=== PATIENT | female | born 1935 | race Caucasian/White ===

== ENCOUNTER 2018-01-08 07:59 | Day surgery (SDC) | payer MEDICARE, BC ==
[~2018-01-08 07:59] MED LIST: Buffered Lidocaine 0.9% SYRIN* 5 ML/SYR SYRINGE INTRADERM ONE
[2018-01-08] MEDS ORDERED: Ketorolac 0.5% OPHTH (NF) 0.5 % 5 ML BTL ONE (08:09)
[2018-01-08] MEDS ORDERED: Cyclopentolate 1% OPTH.SOL* 2 ML BTL ONE (08:09)
[2018-01-08] MEDS ORDERED: Phenylephrine 2.5% OPTH.SOL* 2 ML BTL ONE (08:09)
[2018-01-08] MEDS ORDERED: Lidocaine 2% EPI 1:200000 MPF* 20 ML VIAL ONE (08:09)
[2018-01-08] MEDS ORDERED: Proparacaine 0.5% OPHTH.SOL* 15 ML BTL ONE (08:09)
[2018-01-08] MEDS ORDERED: Povidone Iodine 5% OPTH* 30 ML BTL ONE (08:09)
[2018-01-08] MEDS ORDERED: Neomycin/Polymy/Dex OPTH.SUSP* MAXITROL 0.1% 5 ML ONE (08:09)
[2018-01-08] MEDS ORDERED: Lidocaine 1% MPF* 2 ML VIAL ONE (08:09)
[2018-01-08] MEDS ORDERED: acetaZOLAMIDE TAB* 250 MG ONE (08:09)
[2018-01-08] MEDS ORDERED: Midazolam* 1 MG/ML 2 ML VIAL (2 MG) ONE (09:16)
[2018-01-08] MEDS ORDERED: Labetalol IV* 5 MG/ML 20 ML VIAL ONE (09:38)
[2018-01-08] MEDS ORDERED: Metoprolol Tartrate IV* 1 MG/ML 5 ML VIAL ONE (09:38)
[2018-01-08 09:49] VITALS: BP 168/74
--- NOTE | 2018-01-08 22:19 | OP ---
DATE OF OPERATION: 01/08/18 - [facility] DATE OF : 31 SURGEON: Geovani Douglas M.D. PREOPERATIVE DIAGNOSIS: Cataract, left eye. POSTOPERATIVE DIAGNOSIS: Cataract, left eye. OPERATIVE PROCEDURE: Extracapsular cataract extraction with intraocular lens implant, left eye. DESCRIPTION OF PROCEDURE: The patient was brought to the operating room after being given 1/2% Alcaine with epinephrine drops in the preoperative area. The eye was prepped and draped in the usual sterile fashion. Sterile drape and eyelid speculum were placed. Again, topical 1/2% Alcaine with epinephrine was given. A paracentesis incision was made at the 3 o'clock position with the No.75 blade. Clear cornea incision 2.2 x 2.2-mm was created at the 6 o'clock position starting at the anterior limbus using the 2.2-mm keratome. The anterior chamber was irrigated with 0.4 mL of 1% non-preservative intracameral lidocaine and filled with DisCoVisc. A capsulorrhexis was completed using the cystotome and the Utrata forceps. Hydrodissection was performed with balanced salt solution. The lens nucleus was removed with the Phacoemulsification handpiece without incident. Cortex was removed with the irrigation-aspiration handpiece. The capsular bag was re-inflated using DisCoVisc and an [id number] implant was inserted with the shooter and oriented to the 177 degree meridian. Horizontal reference roman were made with the patient in seated position in the preoperative area. A Malyugin ring was placed prior to capsulorrhexis because of a 3 mm pupil and removed after insertion and positioning of the lens. Indication for the complex cataract surgery: Pupil abnormalities requiring pupil dilation device. The irrigation-aspiration handpiece was used to remove all residual DisCoVisc. The eye was refilled with balanced salt solution and the wound checked and found to be watertight. Topical Maxitrol drops were given. [id number]/[facility] #: [id number] MTDD
== END 2018-01-08 10:05 | disposition home or self-care (01) ==
LOC: OREAST 07:59
PROVIDERS: ATTEND Specialist
DX: H25.12 Age-related nuclear cataract, left eye (principal); H26.491 Other secondary cataract, right eye; I10 Essential (primary) hypertension; M81.0 Age-related osteoporosis without current pathological fracture; H10.45 Other chronic allergic conjunctivitis; H43.819 Vitreous degeneration, unspecified eye; Z85.828 Personal history of other malignant neoplasm of skin; I34.1 Nonrheumatic mitral (valve) prolapse; I48.91 Unspecified atrial fibrillation
CPT/HCPCS: A9270-GY; J2250; J3490; V2787

== ENCOUNTER 2018-03-05 20:05 | Emergency (ER) | payer MEDICARE, BC ==
[2018-03-05] MEDS ORDERED: traMADol TAB* 50 MG PO ONE (22:28)
--- NOTE | 2018-03-05 22:38 | UC ---
Eugenia Arellano Emily, scribed for Devon Doan MD on 03/05/18 at 2145 . Back Pain HPI - HPI Summary HPI Summary: This patient is an 82 year old F presenting to urgent care with a chief complaint of lower back pain that began status post fall that occurred today at 1130. Pt believes that she twisted her back when falling. The patient rates the pain 5/10 in severity. Symptoms aggravated by position. Symptoms alleviated by bending. Patient denies bowel symptoms, urinary symptoms, weakness, and numbness. Medications reviewed. Allergies reviewed. - History of Current Complaint Chief Complaint: UCBackPain Stated Complaint: BACK INJURY Time Seen by Provider: 03/05/18 21:38 Hx Obtained From: Patient ?: No Onset/Duration: Sudden Onset, Lasting Hours, Still Present Timing: Constant Severity Initially: Moderate Severity Currently: Moderate Pain Intensity: 5 Pain Scale Used: 0-10 Numeric Aggravating Factor(s): Other - Position Alleviating Factor(s): Other - Bending - Allergies/Home Medications Allergies/Adverse Reactions: Allergies Allergy/AdvReac Type Severity Reaction Status Date / Time latex Allergy Rash Verified 03/05/18 20:42 Home Medications: Home Medications Olmesartan/Hydrochlorothiazide [Olmesartan Medoxomil/Hydr 40-12.5 mg] 0.5 tab PO 03/05/18 [History] PMH/Surg Hx/FS Hx/Imm Hx Previously Healthy: No Endocrine History: Thyroid Disease Cardiovascular History: Hypertension - Surgical History Surgical History: Yes Surgery Procedure, Year, and Place: (20-30 YEARS AGO) DILATION AND CURETTAGE, [facility] [place]. 1995 LEFT HEEL SPUR EXCISION, [facility] [place]. 2005 EXPLORATORY BLADDER SURGERY, [facility] [place]. SEVERAL BASAL CELL CARCINOMA REMOVAL. RIGHT EYE CATARACT EXTRACTION 2014 - Family History Known Family History: Negative: Cardiac Disease, Diabetes - Social History Occupation: Retired Lives: Alone Alcohol Use: Weekly Alcohol Amount: OCCASIONAL VODKA SOUR Substance Use Type: None Smoking Status (MU): Never Smoked Tobacco Review of Systems Gastrointestinal: Negative Genitourinary: Negative Musculoskeletal: Other: - Postiive back pain Neurological: Other - Negative weakness and numbness All Other Systems Reviewed And Are Negative: Yes Physical Exam - Summary Physical Exam Summary: General: well-appearing, no pain distress Skin: warm, color reflects adequate perfusion, dry. Two skin tears on L arm that are covered and dressed. Head: normal Eyes: EOMI, MATTHEW ENT: normal Neck: supple, nontender Respiratory: CTA, breath sounds present Cardiovascular: RRR Abdomen: soft, nontender Bowel: present Musculoskeletal: normal, strength/ROM intact. Good reflexes. Good sensation. FROM. Back is not tender to palpation. Neurological: sensory/motor intact, A&O x3 Psychological: affect/mood appropriate Triage Information Reviewed: Yes Vital Signs: Initial Vital Signs Temp 97.6 F 03/05/18 20:34 Pulse 72 03/05/18 20:34 Resp 18 03/05/18 20:34 BP 220/103 03/05/18 20:34 Pulse Ox 99 03/05/18 20:34 Vital Signs Reviewed: Yes Diagnostics - Radiology Lumbar Spine XR Radiology Interpretation Completed By: Radiologist - Lumbar spine XR reveals, per physician, scoliosis, osteoporosis, and no acute fracture. Back Pain Course/Dx - Course Course Of Treatment: NO NEUROLOGIC DEFICIT ON EXAM - Differential Dx/Diagnosis Provider Diagnoses: LOW BACK PAIN. SKIN TEARS LEFT ARM Discharge - Sign-Out/Discharge Documenting (check all that apply): Discharge/Admit/Transfer - Discharge Plan Condition: Stable Disposition: HOME Prescriptions: traMADol TAB* [Ultram*] 50 mg PO Q6HR PRN #20 tab MDD 4 PRN Reason: Pain Patient Education Materials: Acute Low Back Pain (ED), Skin Tear (ED) Referrals: Kandace Osborne MD [Primary Care Provider] - Additional Instructions: FOLLOW UP WITH YOUR DOCTOR. GET RECHECKED FOR ANY WORSENING OF YOUR CONDITION; PAIN, WEAKNESS, NUMBNESS, DIFFICULTY CONTROLLING BOWEL OR BLADDER OR QUESTIONS OR CONCERNS. - Billing Disposition and Condition Condition: STABLE Disposition: HOME The documentation as recorded by the Eugenia glass Emily accurately reflects the service I personally performed and the decisions made by me, Devon Doan MD.
[2018-03-05 22:50] VITALS: BP 176/88
--- NOTE | 2018-03-06 07:10 | RAD ---
INDICATION: Low back pain status post fall. COMPARISON: There are no prior studies available for comparison. TECHNIQUE: 5 views of the lumbar spine were obtained including lateral, oblique, AP and a coned-down lateral view of the lumbar sacral junction. FINDINGS: There is a moderate lumbar scoliosis convex toward the left side. No fracture is seen. There is mild to moderate diffuse degenerative disc disease with changes most prominent at the L2-L3 and L3-L4 levels. There is a large calcification which projects over the pelvis in the midline possibly representing a calcified fibroid. IMPRESSION: 1. NO EVIDENCE FOR FRACTURE. 2. SCOLIOSIS AND MILD TO MODERATE DEGENERATIVE DISC DISEASE.
== END 2018-03-05 22:47 | disposition home or self-care (01) ==
LOC: UCEAST 20:05
DX: M54.5 Low back pain (principal); S40.922A Unspecified superficial injury of left upper arm, initial encounter; X50.0XXA Overexertion from strenuous movement or load, initial encounter; W19.XXXA Unspecified fall, initial encounter; Y93.9 Activity, unspecified; Y92.9 Unspecified place or not applicable; I10 Essential (primary) hypertension
CPT/HCPCS: 72110; 99212; A9270-GY; G0463

== ENCOUNTER 2018-03-12 15:02 | Emergency (ER) | payer MEDICARE, BC ==
[2018-03-12 15:56] VITALS: BP 172/84
--- NOTE | 2018-03-12 17:32 | UC ---
Back Pain HPI - HPI Summary HPI Summary: PATIENT WAS SEEN HERE ONE WEEK AGO AFTER A FALL COMPLAINING OF LOW BACK PAIN. HAD NEGATIVE LUMBAR X-RAYS AND WAS TREATED WITH TRAMADOL. PATIENT RETURNS STATING THE PAIN IS GETTING PROGRESSIVELY WORSE AND THE TRAMADOL IS NOT WORKING. SHE DENIES ANY LOSS OF BOWEL OR BLADDER CONTROL. NO SADDLE ANESTHESIA. - History of Current Complaint Chief Complaint: UCBackPain Stated Complaint: BACK PAIN Time Seen by Provider: 03/12/18 16:59 Hx Obtained From: Patient Onset/Duration: Sudden Onset, Lasting Days, Still Present Timing: Constant Severity Initially: Moderate Severity Currently: Moderate Pain Intensity: 5 Pain Scale Used: 0-10 Numeric Back Pain: Is Discrete @ - RIGHT LOW BACK Character: Sharp Aggravating Factor(s): Movement Alleviating Factor(s): Rest Associated Signs And Symptoms: Positive: Negative - Allergies/Home Medications Allergies/Adverse Reactions: Allergies Allergy/AdvReac Type Severity Reaction Status Date / Time latex Allergy Rash Verified 03/12/18 15:32 Home Medications: Home Medications Acetaminophen [Acetaminophen Extra Strength] 500 mg PO ONCE 03/12/18 [History Confirmed 03/12/18] PMH/Surg Hx/FS Hx/Imm Hx - Additional Past Medical History Additional PMH: ARTHRITIS Cardiovascular History: Hypertension, Atrial Fibrillation Other Cancer History: SKIN CANCER - Surgical History Surgical History: Yes Surgery Procedure, Year, and Place: (20-30 YEARS AGO) DILATION AND CURETTAGE, [facility] [place]. 1995 LEFT HEEL SPUR EXCISION, [facility] [place]. 2005 EXPLORATORY BLADDER SURGERY, [facility] [place]. SEVERAL BASAL CELL CARCINOMA REMOVAL. RIGHT EYE CATARACT EXTRACTION 2013 - Family History Known Family History: Negative: Cardiac Disease, Diabetes - Social History Alcohol Use: None Alcohol Amount: OCCASIONAL VODKA SOUR Substance Use Type: None Smoking Status (MU): Never Smoked Tobacco Review of Systems Constitutional: Negative Skin: Negative Respiratory: Negative Cardiovascular: Negative Gastrointestinal: Negative Genitourinary: Negative Musculoskeletal: Decreased ROM, Myalgia All Other Systems Reviewed And Are Negative: Yes Physical Exam Triage Information Reviewed: Yes Appearance: Well-Appearing, No Pain Distress, Well-Nourished Vital Signs: Initial Vital Signs Temp 97.5 F 03/12/18 15:36 Pulse 68 03/12/18 15:36 Resp 16 03/12/18 15:36 BP 0/0 03/12/18 15:36 Pulse Ox 100 06/06/18 15:36 Vital Signs Reviewed: Yes Eyes: Positive: Conjunctiva Clear ENT: Positive: Hearing grossly normal Neck: Positive: Supple Respiratory: Positive: No respiratory distress, No accessory muscle use Cardiovascular: Positive: Pulses Normal Abdomen Description: Positive: Soft Musculoskeletal: Positive: No Edema, Other: - TTP RIGHT MID/LOW BACK PARASPINOUS MUSCLES Neurological: Positive: Alert Psychological: Positive: Age Appropriate Behavior Skin: Negative: rashes Diagnostics - Radiology CT LUMBAR SPINE Xray Interpretation: Positive (See Comments) - MODERATE DEGREE OF COMPRESSION OF APPROXIMATELY 25-50% OF THE T12 VERTEBRA SUPERIOR ENDPLATE WHICH APPEARS PROGRESSIVE SINCE 03/05/2018. MULTILEVEL DEGENERATIVE DISC DISEASE. Radiology Interpretation Completed By: Radiologist Back Pain Course/Dx - Differential Dx/Diagnosis Provider Diagnoses: COMPRESSION FRACTURE T12 Discharge - Sign-Out/Discharge Documenting (check all that apply): Discharge/Admit/Transfer - Discharge Plan Condition: Stable Disposition: HOME Prescriptions: HYDROcodone/ACETAMIN 5-325 MG* [[place] 5-325 TAB*] 1 tab PO Q6H PRN #20 tab MDD 4 PRN Reason: Pain Patient Education Materials: Vertebral Compression Fracture (ED) Referrals: Kandace Osborne MD [Primary Care Provider] - If Needed Rai Castro MD [Medical Doctor] - 1 Day Additional Instructions: CT SCAN OF LUMBAR SPINE SHOWS MODERATE DEGREE OF COMPRESSION OF APPROXIMATELY 25 -50% OF THE T12 VERTEBRA SUPERIOR ENDPLATE WHICH APPEARS PROGRESSIVE SINCE 2017. MULTILEVEL DEGENERATIVE DISC DISEASE. TAKE 400MG IBUPROFEN EVERY 6 HOURS NEEDED FOR DISCOMFORT. HYDROCODONE/APAP FOR BREAKTHROUGH. CALL NEUROSURGERY FIRST THING IN THE MORNING FOR AN APPT TO BE SEEN THIS WEEK. GO TO THE ER WITHOUT FAIL IF YOU DEVELOP NUMBNESS/TINGLING IN YOUR LEGS, NUMBNESS IN THE GENITAL REGION, LOSS OF BOWEL/BLADDER CONTROL, INTOLERABLE PAIN OR ANY OTHER CONCERNING SYMPTOMS. - Billing Disposition and Condition Condition: STABLE Disposition: Home
--- NOTE | 2018-03-12 18:05 | RAD ---
Patient: Back pain. CT of the lumbar spine was obtained in the axial plane. Sagittal and coronal reconstructed images were obtained. Comparison is made with previous exam dated March 05, 2018. There is mild to moderate compression of the superior endplate of the T12 vertebra. The age of this is undetermined but appears to be progressive compared to previous exam of March 05, 2018. The remainder of the vertebra demonstrates osteopenia however no compression is noted. At L5-S1 spondylitic ridge with facet arthropathy is noted. No central or foraminal stenosis is noted. At L4-L5 broad-based protrusion flattens the thecal sac. Facet arthropathy is noted. No central or foraminal stenosis is noted. At L3-L4 spondylitic ridge flattens the thecal sac. No central or foraminal stenosis is noted. At L2-L3 no focal protrusion is identified. No central foraminal stenosis is noted. At L1-L2 there is no disc protrusion. No central or foraminal stenosis is noted. The aorta demonstrates atherosclerosis without aneurysmal dilatation where visualized. The visualized kidneys demonstrate no definite hydronephrosis. IMPRESSION: Moderate degree of compression of approximately 25-50% of the T12 vertebra superior endplate which appears progressive since March 05, 2018. Multilevel degenerative disc disease at L4-L5 and L5-S1 as well as L2-L3 and L3-L4.
--- NOTE | 2018-03-14 14:33 | UC ---
- Progress Note Progress Note: PATIENT CALLED COMPLAINING OF PERSISTENT PAIN AND STATES THAT THE HYDROCODONE IS NOT HELPING. SHE ALSO IS REPORTING CHILLS AND DECREASED APPETITE. HAS LOST ABOUT 5 POUNDS IN THE PAST WEEK. I ADVISED THE PATIENT TO GO TO [place] [facility] [place] FOR FURTHER EVALUATION OF THESE SYMPTOMS. SHE DOES HAVE AN APPOINTMENT WITH THE NEUROSURGEON IN 3 DAYS 03/17/18. - ERIN GONZALEZ MD Discharge - Sign-Out/Discharge Documenting (check all that apply): Post-Discharge Follow Up - Discharge Plan Condition: Stable Disposition: HOME Prescriptions: HYDROcodone/ACETAMIN 5-325 MG* [[place] 5-325 TAB*] 1 tab PO Q6H PRN #20 tab MDD 4 PRN Reason: Pain Patient Education Materials: Vertebral Compression Fracture (ED) Referrals: Kandace Osborne MD [Primary Care Provider] - If Needed Rai Castro MD [Medical Doctor] - 1 Day Additional Instructions: CT SCAN OF LUMBAR SPINE SHOWS MODERATE DEGREE OF COMPRESSION OF APPROXIMATELY 25 -50% OF THE T12 VERTEBRA SUPERIOR ENDPLATE WHICH APPEARS PROGRESSIVE SINCE 2017. MULTILEVEL DEGENERATIVE DISC DISEASE. TAKE 400MG IBUPROFEN EVERY 6 HOURS NEEDED FOR DISCOMFORT. HYDROCODONE/APAP FOR BREAKTHROUGH. CALL NEUROSURGERY FIRST THING IN THE MORNING FOR AN APPT TO BE SEEN THIS WEEK. GO TO THE ER WITHOUT FAIL IF YOU DEVELOP NUMBNESS/TINGLING IN YOUR LEGS, NUMBNESS IN THE GENITAL REGION, LOSS OF BOWEL/BLADDER CONTROL, INTOLERABLE PAIN OR ANY OTHER CONCERNING SYMPTOMS. - Billing Disposition and Condition Condition: STABLE Disposition: Home
== END 2018-03-12 18:50 | disposition home or self-care (01) ==
LOC: UCEAST 15:02
DX: S22.080A Wedge compression fracture of T11-T12 vertebra, initial encounter for closed fracture (principal); S22.070S Wedge compression fracture of T9-T10 vertebra, sequela; W19.XXXA Unspecified fall, initial encounter; Y93.9 Activity, unspecified; Y92.9 Unspecified place or not applicable; M51.36 Other intervertebral disc degeneration, lumbar region; M51.37 Other intervertebral disc degeneration, lumbosacral region; I10 Essential (primary) hypertension; I48.91 Unspecified atrial fibrillation; Z85.828 Personal history of other malignant neoplasm of skin; Z91.040 Latex allergy status
CPT/HCPCS: 72131; 99212; G0463

== ENCOUNTER 2018-03-14 15:59 | Inpatient (IN) | payer MEDICARE, BC ==
[2018-03-14] MEDS ORDERED: Dexamethasone IV* 4 MG/ML 1 ML (4 MG) IV SLOW PU ONE (16:31)
[2018-03-14] MEDS ORDERED: oxyCODONE/Acetamin 5/325 MG* TAB PO ONE (16:31)
[2018-03-14] MEDS ORDERED: Ketorolac INJ* 30 MG/ML 1 ML VIAL IV PUSH ONE (16:31)
[2018-03-14] MEDS ORDERED: Orphenadrine Citrate IV* 30 MG/ML 2 ML VIAL IV ONE (16:31)
[2018-03-14] MEDS ORDERED: NS 0.9% 1000 ML* 500 ML IV ONE ×2 (18:03→19:45)
[2018-03-14 18:23] LABS: ABS Basophils 0 10^3/ul (0-0.2); ABS Eosinophils 0 10^3/ul (0-0.6); ABS Lymphocytes 0.8 10^3/ul (1.0-4.8); ABS Monocytes 0.4 10^3/ul (0-0.8); ABS Neutrophils 5.1 10^3/ul (1.5-7.7); ABS Nucleated RBC 0 10^3/ul; Eosinophil % 0.3 % (0-6); Hematocrit 36 % (35-47); Hemoglobin 12.4 g/dl (12.0-16.0); Lymphocyte % 12.5 % (25-47); Mean Corpuscular HGB Conc 35 g/dl (31-36); Mean Corpuscular Hemoglobin 31 pg (27-31); Mean Corpuscular Volume 90 fL (80-97); Mean Platelet Volume 6.6 um3 (7.4-10.4); Nucleated Red Blood Cells % 0.1; Platelet Count 285 10^3/ul (150-450); Red Blood Count 4.01 10^6/ul (4.0-5.4); Red Cell Distribution Width 14 % (10.5-15); White Blood Count 6.4 10^3/ul (3.5-10.8)
--- NOTE | 2018-03-14 19:39 | HP ---
H&P (Free Text) History and Physical: PCP: Isreal Osborne MD Date/Time: 03/14/2018 193 CC: back pain HPI: Mrs Jefferson is an 82YO female HX HTN, GERD who fell 03/05/2018 sustaining a T12 compression fracture the pain of which worsened today to 8/10 without provocation. There is no radiation, W/N/T, change in bowel/bladder, or other issues. Treatment in ED has brought her pain level down to a 4/10. However, in the work up it was found her sodium is 119, likely from the addition of HCTZ to her olmesartan 5 weeks ago. PMedHx HTN urinary retention for which she self-straight caths BID GERD Ambulatory Orders Amitriptyline TAB* [Elavil TAB*] 25 mg PO QPM 03/23/13 Calcium Carbonate/Vitamin D3 [Calcium 600-Vit D3 400 Tablet] 1 tab PO QAM Metoprolol Succinate XL TAB* [Toprol XL TAB*] 50 mg PO QAM 03/23/13 Olmesartan/Hydrochlorothiazide [Olmesartan-Hctz 40-12.5 mg Tab] 1 tab PO DAILY 03/05/18 Acetaminophen [Acetaminophen Extra Strength] 500 mg PO DAILY PRN 03/12/18 HYDROcodone/ACETAMIN 5-325 MG* [[place] 5-325 TAB*] 1 tab PO Q6H PRN #20 tab MDD 4 03/12/18 Aspirin EC TAB* [Ecotrin EC Low Dose 81 MG*] 81 mg PO DAILY 03/14/18 Cholecalciferol TAB* [Vitamin D TAB*] 1,000 unit PO DAILY 03/14/18 Ibuprofen 200 mg PO Q6HR PRN 03/14/18 Omeprazole CAP* [Prilosec CAP* 20 MG] 20 mg PO QPM 03/14/18 Tramadol HCl [Ultram] 50 mg PO Q6HR 03/14/18 Allergies latex Allergy (Verified 03/14/18 16:01) Rash SocHx: no tobacco, occasional alcohol, no recreational drugs; ; retired; full code status FamHx: reviewed & non-contributory ROS: as above, otherwise reviewed and all were negative vitals: Vital Signs Temp 36.5 C 03/14/18 21:02 Pulse 65 03/14/18 21:02 Resp 18 03/14/18 21:02 BP 181/84 03/14/18 21:02 Pulse Ox 94 03/14/18 21:02 Intake & Output 03/13/18 03/14/18 03/14/18 23:59 11:59 23:59 Intake Total 1000 Output Total 0 Balance 1000 Weight 68.039 kg Intake: IV Fluids 1000 Oral 0 Output: Urine 0 Other: # Voids 1 Constitutional: NAD, normally developed, well-nourished elderly white female HEENM: atraumatic; sclera/conjunctiva: anicteric/clear; hearing: clinically intact; oropharynx: clear, mucosa moist Neck: soft tissue: non-tender; thyroid: normal Pulmonary: clear to auscultation bilaterally, good aeration, no accessory muscle use CV: RR/RR, normal S1S2, no carotid bruit, no jugular venous distention, 2+ B DP/ PT, no edema Abdominal: soft, non-distended, non-tender, no rebound/guarding/rigidity, normoactive bowel sounds, no hepatosplenomegaly or masses, no costovertebral angle tenderness Musculoskeletal: general: grossly intact, mid-thoracic midline tenderness Integumental: normal appearance and texture of exposed skin Psychiatric orientation: AA&O to PPS affect: calm mood: cooperative eye contact: good content: reliable responses: timely insight: good Testing: Lab Results 03/14/18 03/14/18 03/14/18 Range/Units 18:10 18:10 18:10 WBC 6.4 (3.5-10.8) 10^3/ul RBC 4.01 (4.0-5.4) 10^6/ul Hgb 12.4 (12.0-16.0) g/dl Hct 36 (35-47) % MCV 90 (80-97) fL MCH 31 (27-31) pg MCHC 35 (31-36) g/dl RDW 14 (10.5-15) % Plt Count 285 (150-450) 10^3/ul MPV 6.6 L (7.4-10.4) um3 Neut % (Auto) 79.7 (38-83) % Lymph % (Auto) 12.5 L (25-47) % [place] % (Auto) 6.9 (0-7) % Eos % (Auto) 0.3 (0-6) % Baso % (Auto) 0.6 (0-2) % Absolute Neuts (auto) 5.1 (1.5-7.7) 10^3/ul Absolute Lymphs (auto) 0.8 L (1.0-4.8) 10^3/ul Absolute Monos (auto) 0.4 (0-0.8) 10^3/ul Absolute Eos (auto) 0 (0-0.6) 10^3/ul Absolute Basos (auto) 0 (0-0.2) 10^3/ul Absolute Nucleated RBC 0 10^3/ul Nucleated RBC % 0.1 INR (Anticoag Therapy) (0.77-1.02) APTT (26.0-36.3) seconds Sodium 119 L* (139-145) mmol/L Potassium 3.5 (3.5-5.0) mmol/L Chloride 84 L (101-111) mmol/L Carbon Dioxide 26 (22-32) mmol/L Anion Gap 9 (2-11) mmol/L BUN 15 (6-24) mg/dL Creatinine 0.95 (0.51-0.95) mg/dL Est GFR ( Amer) 72.1 (>60) Est GFR (Non-Af Amer) 56.0 (>60) BUN/Creatinine Ratio 15.8 (8-20) Glucose 107 H (70-100) mg/dL Lactic Acid 0.7 (0.5-2.0) mmol/L Calcium 9.7 (8.6-10.3) mg/dL Total Bilirubin 0.80 (0.2-1.0) mg/dL AST 38 (13-39) U/L ALT 30 (7-52) U/L Alkaline Phosphatase 81 (34-104) U/L C-Reactive Protein 34.81 H (< 5.00) mg/L Total Protein 7.3 (6.4-8.9) g/dL Albumin 4.0 (3.2-5.2) g/dL Globulin 3.3 (2-4) g/dL Albumin/Globulin Ratio 1.2 (1-3) Urine Color Urine Appearance Urine pH (5-9) Ur Specific [place] (1.010-1.030) Urine Protein (Negative) Urine Ketones (Negative) Urine Blood (Negative) Urine Nitrate (Negative) Urine Bilirubin (Negative) Urine Urobilinogen (Negative) Ur Leukocyte Esterase (Negative) Urine WBC (Auto) (Absent) Urine RBC (Auto) (Absent) Ur Squamous Epith Cells (Absent) Urine Bacteria (Absent) Urine Glucose (Negative) 03/14/18 03/14/18 03/14/18 Range/Units 18:10 19:33 21:45 WBC (3.5-10.8) 10^3/ul RBC (4.0-5.4) 10^6/ul Hgb (12.0-16.0) g/dl Hct (35-47) % MCV (80-97) fL MCH (27-31) pg MCHC (31-36) g/dl RDW (10.5-15) % Plt Count (150-450) 10^3/ul MPV (7.4-10.4) um3 Neut % (Auto) (38-83) % Lymph % (Auto) (25-47) % [place] % (Auto) (0-7) % Eos % (Auto) (0-6) % Baso % (Auto) (0-2) % Absolute Neuts (auto) (1.5-7.7) 10^3/ul Absolute Lymphs (auto) (1.0-4.8) 10^3/ul Absolute Monos (auto) (0-0.8) 10^3/ul Absolute Eos (auto) (0-0.6) 10^3/ul Absolute Basos (auto) (0-0.2) 10^3/ul Absolute Nucleated RBC 10^3/ul Nucleated RBC % INR (Anticoag Therapy) 1.02 (0.77-1.02) APTT 34.1 (26.0-36.3) seconds Sodium 123 L (139-145) mmol/L Potassium 4.2 (3.5-5.0) mmol/L Chloride 86 L (101-111) mmol/L Carbon Dioxide 24 (22-32) mmol/L Anion Gap 13 H (2-11) mmol/L BUN 16 (6-24) mg/dL Creatinine 0.88 (0.51-0.95) mg/dL Est GFR ( Amer) 78.7 (>60) Est GFR (Non-Af Amer) 61.2 (>60) BUN/Creatinine Ratio 18.2 (8-20) Glucose 172 H (70-100) mg/dL Lactic Acid (0.5-2.0) mmol/L Calcium 10.4 H (8.6-10.3) mg/dL Total Bilirubin (0.2-1.0) mg/dL AST (13-39) U/L ALT (7-52) U/L Alkaline Phosphatase (34-104) U/L C-Reactive Protein (< 5.00) mg/L Total Protein (6.4-8.9) g/dL Albumin (3.2-5.2) g/dL Globulin (2-4) g/dL Albumin/Globulin Ratio (1-3) Urine Color Straw Urine Appearance Clear Urine pH 7.0 (5-9) Ur Specific [place] 1.002 L (1.010-1.030) Urine Protein 1+(30 mg/dl) A (Negative) Urine Ketones Trace A (Negative) Urine Blood 1+ A (Negative) Urine Nitrate Negative (Negative) Urine Bilirubin Negative (Negative) Urine Urobilinogen Negative (Negative) Ur Leukocyte Esterase 1+ A (Negative) Urine WBC (Auto) 1+(6-10/hpf) A (Absent) Urine RBC (Auto) Trace(0-2/hpf) (Absent) Ur Squamous Epith Cells Present A (Absent) Urine Bacteria Absent (Absent) Urine Glucose Negative (Negative) Impression: 82F presenting with worsening mid-thoracic s/p a mechanical fall with incidental finding of a sodium of 119 five weeks after starting HCTZ DIAGNOSIS & PLAN Primary hypoNatremia, likely 2nd HCTZ : D/C HCTZ : D/C tramadol 2nd lowering of seizure threshold and not effective per patient : IVFs via NS : trend electrolytes : supportive care HTN : monitor : continue outpatient regimen x/ HCTZ as above : IV hydralazine PRN Secondary GERD : continue omeprazole urinary retention : Q4H bladder scans with PRN straight cath for >250cc residual Admission Rational: observation for hypoNatremia DVTp: heparin SQ Code Status: full HCP: daughterJuana
[2018-03-14] MEDS ORDERED: Acetaminophen TAB* 325 MG PO PRN (19:43)
[2018-03-14] MEDS ORDERED: Ondansetron ODT TAB* 4 MG PO PRN (19:43)
[2018-03-14] MEDS ORDERED: Melatonin 3 MG TAB PO PRN (19:43)
--- NOTE | 2018-03-14 19:46 | ED ---
Tra Arellano Tiffany, scribed for Los Ashraf MD on 03/14/18 at 1635 . Back Pain - HPI Summary HPI Summary: 82 year old F referred to [facility] from Urgent Care complains of back pain s/p mechanical fall nine days ago, worse since today. Does not radiate. She rates the pain 8/10 in severity. Symptoms aggravated by nothing. Symptoms alleviated by nothing. Reports chills, decreased appetite, recent weight loss. Denies nausea, vomiting, inability to walk, fever, cough. Has treated pain with Tramodal, Tylenol and hydrocodone without relief. Patient was seen at Urgent Care twice, where she received x-ray and CT. Dx vertebral fracture. Has appointment with neurosurgery on 03/17/18. Told to go to ED if pain worsens. - History of Current Complaint Chief Complaint: EDBackInjuryPain Stated Complaint: BACK PAIN Time Seen by Provider: 03/14/18 16:16 Hx Obtained From: Patient Onset/Duration: Lasting Days - 9, Still Present, Worse Since - today Severity Currently: Severe Pain Intensity: 8 Pain Scale Used: 0-10 Numeric Aggravating Symptom(s): Nothing Alleviating Symptom(s): Nothing Associated Signs And Symptoms: Positive: Negative - nausea, vomiting, inability to walk, fever, cough, Other - chills, decreased appetite, recent weight loss - Allergies/Home Medications Allergies/Adverse Reactions: Allergies Allergy/AdvReac Type Severity Reaction Status Date / Time latex Allergy Rash Verified 03/14/18 16:01 Home Medications: Home Medications Aspirin EC TAB* [Ecotrin EC Low Dose 81 MG*] 81 mg PO DAILY 03/14/18 [History Confirmed 03/14/18] Cholecalciferol TAB* [Vitamin D TAB*] 1,000 unit PO DAILY 03/14/18 [History Confirmed 03/14/18] Omeprazole CAP* [Prilosec CAP* 20 MG] 20 mg PO QPM 03/14/18 [History Confirmed 03/14/18] PMH/Surg Hx/FS Hx/Imm Hx Previously Healthy: No Endocrine/Hematology History: Reports: Hx Thyroid Disease Denies: Hx Diabetes Cardiovascular History: Reports: Hx Hypertension - control with medication, Other Cardiovascular Problems/Disorders - Ankle swelling on plane and with heat Denies: Hx Valvular Heart Disease Respiratory History: Denies: Other Respiratory Problems/Disorders GI History: Reports: Hx Gastroesophageal Reflux Disease - DYSPEPSIA, on medication Denies: Other GI Disorders History: Reports: Other Problems/Disorders - Freq UTI 2-3 a years, none in 2 years, self catheterizes BID,sees Dr Hunter Musculoskeletal History: Reports: Hx Arthritis - generalized osteoarthritis, Other Musculoskeletal History - bone spurs on right shoulder, painful Sensory History: Reports: Hx Cataracts - Left eye cataract at present, Right eye cataract removed, Hx Contacts or Glasses - Glasses occasionally, Hx Hearing Aid - Bilateral hearing aids Opthamlomology History: Reports: Hx Cataracts - Left eye cataract at present, Right eye cataract removed, Hx Contacts or Glasses - Glasses occasionally Neurological History: Denies: Other Neuro Impairments/Disorders Psychiatric History: Reports: Hx Anxiety - history of, none recent - Cancer History Cancer Type, Location and Year: skin ca - Surgical History Surgery Procedure, Year, and Place: (20-30 YEARS AGO) DIL[place] [facility] [place] LEFT HEEL SPUR EXCISION, [facility] [place]. 2005 EXPLORATORY BLADDER SURGERY, [facility] [place]. SEVERAL BASAL CELL CARCINOMA REMOVAL. RIGHT EYE CATARACT EXTRACTION 2013 Hx Anesthesia Reactions: No Infectious Disease History: No Infectious Disease History: Reports: Hx Shingles Denies: Traveled Outside the [place] in Last 30 Days - Family History Known Family History: Negative: Cardiac Disease, Diabetes - Social History Alcohol Use: Rare Alcohol Amount: OCCASIONAL VODKA SOUR Hx Substance Use: No Substance Use Type: Reports: None Hx Tobacco Use: No Smoking Status (MU): Never Smoked Tobacco Review of Systems Positive: Chills, Other - recent weight loss. Negative: Fever Negative: Cough Positive: Other - decreased appetite. Negative: Vomiting, Nausea Positive: Other - back pain Neurological: Negative - inability to walk All Other Systems Reviewed And Are Negative: Yes Physical Exam - Summary Physical Exam Summary: VITAL SIGNS: Reviewed. GENERAL: Patient is a well-developed and nourished female who is lying comfortable in the stretcher. Patient is not in any acute respiratory distress. HEAD AND FACE: No signs of trauma. No ecchymosis, hematomas or skull depressions. No sinus tenderness. EYES: PERRLA, EOMI x 2, No injected conjunctiva, no nystagmus. EARS: Hearing grossly intact. Ear canals and tympanic membranes are within normal limits. MOUTH: Oropharynx within normal limits. NECK: Supple, trachea is midline, no adenopathy, no JVD, no carotid bruit, no c- spine tenderness, neck with full ROM. CHEST: Symmetric, no tenderness at palpation BACK: tenderness in t-spine and l-spine LUNGS: Clear to auscultation bilaterally. No wheezing or crackles. CVS: Regular rate and rhythm, S1 and S2 present, no murmurs or gallops appreciated. ABDOMEN: Soft, non-tender. No signs of distention. No rebound no guarding, and no masses palpated. Bowel sounds are normal. EXTREMITIES: FROM in all major joints, no edema, no cyanosis or clubbing. NEURO: Alert and oriented x 3. No acute neurological deficits. Speech is normal and follows commands. SKIN: Dry and warm Triage Information Reviewed: Yes Vital Signs On Initial Exam: Initial Vitals Temp Pulse Resp BP Pulse Ox 98 F 73 18 180/115 97 03/14/18 16:02 03/14/18 16:02 03/14/18 16:02 03/14/18 16:02 03/14/18 16:02 Vital Signs Reviewed: Yes Diagnostics - Vital Signs Vital Signs Temp Pulse Resp BP Pulse Ox 03/14/18 16:02 98 F 73 18 180/115 97 - Laboratory Lab Results: Lab Results 03/14/18 03/14/18 03/14/18 Range/Units 18:10 18:10 18:10 WBC 6.4 (3.5-10.8) 10^3/ul RBC 4.01 (4.0-5.4) 10^6/ul Hgb 12.4 (12.0-16.0) g/dl Hct 36 (35-47) % MCV 90 (80-97) fL MCH 31 (27-31) pg MCHC 35 (31-36) g/dl RDW 14 (10.5-15) % Plt Count 285 (150-450) 10^3/ul MPV 6.6 L (7.4-10.4) um3 Neut % (Auto) 79.7 (38-83) % Lymph % (Auto) 12.5 L (25-47) % [place] % (Auto) 6.9 (0-7) % Eos % (Auto) 0.3 (0-6) % Baso % (Auto) 0.6 (0-2) % Absolute Neuts (auto) 5.1 (1.5-7.7) 10^3/ul Absolute Lymphs (auto) 0.8 L (1.0-4.8) 10^3/ul Absolute Monos (auto) 0.4 (0-0.8) 10^3/ul Absolute Eos (auto) 0 (0-0.6) 10^3/ul Absolute Basos (auto) 0 (0-0.2) 10^3/ul Absolute Nucleated RBC 0 10^3/ul Nucleated RBC % 0.1 Sodium 119 L* (139-145) mmol/L Potassium 3.5 (3.5-5.0) mmol/L Chloride 84 L (101-111) mmol/L Carbon Dioxide 26 (22-32) mmol/L Anion Gap 9 (2-11) mmol/L BUN 15 (6-24) mg/dL Creatinine 0.95 (0.51-0.95) mg/dL Est GFR ( Amer) 72.1 (>60) Est GFR (Non-Af Amer) 56.0 (>60) BUN/Creatinine Ratio 15.8 (8-20) Glucose 107 H (70-100) mg/dL Lactic Acid 0.7 (0.5-2.0) mmol/L Calcium 9.7 (8.6-10.3) mg/dL Total Bilirubin 0.80 (0.2-1.0) mg/dL AST 38 (13-39) U/L ALT 30 (7-52) U/L Alkaline Phosphatase 81 (34-104) U/L C-Reactive Protein 34.81 H (< 5.00) mg/L Total Protein 7.3 (6.4-8.9) g/dL Albumin 4.0 (3.2-5.2) g/dL Globulin 3.3 (2-4) g/dL Albumin/Globulin Ratio 1.2 (1-3) Result Diagrams: 03/14/18 18:10 03/14/18 18:10 Lab Statement: Any lab studies that have been ordered have been reviewed, and results considered in the medical decision making process. Back Pain Course/Dx - Course Assessment/Plan: This patient is a 82-year-old female who presents to the emergency room with a chief complaint of lower back pain. She reports that she was diagnosed with a T12 vertebral fracture and she has been taking Ultram and hydrocodone with acetaminophen for the pain past the pain is not controlled. She is able to ambulate, denies any urinary or fecal dysfunction, but the pain is about 8 out of 10. X-ray of the lumbar spine done on 03/05/18: No evidence for fracture dislocation. Lumbar CT impression redundant colon 03/12/18: Moderate degree of compressions of approximately 25-50% of the T12 vertebra superior end plate which appears progressive since March 05. Multilevel degenerative disc disease at the level of L4 and L5 and L5 and S1 as well as L2- l3 and L3-L4. In the ED course the patient was given Decadron, Toradol, Norflex , and Percocet. Since the patient continues to have pain and decided to do blood work and urinalysis. Blood work without any significant abnormality except for sodium level of 119. Since the patient is hyponatremic and discussed my physical exam and findings with Dr. Palacios from the hospitalist services who accepted the patient for admission. The patient is hemodynamically stable alert and oriented 3. - Diagnoses Provider Diagnoses: Hyponatremia, Back pain, T12 compression fracture Discharge - Sign-Out/Discharge Documenting (check all that apply): Discharge/Admit/Transfer - Discharge Plan Condition: Stable Disposition: ADMITTED TO [facility] Referrals: Kandace Osborne MD [Primary Care Provider] - - Billing Disposition and Condition Condition: STABLE Disposition: Admitted to [facility] The documentation as recorded by the Tra glass Tiffany accurately reflects the service I personally performed and the decisions made by me, Los Ashraf MD.
[2018-03-14 20:00] LABS: Urine Appearance Clear; Urine Blood 1+ (Negative); Urine Color Straw; Urine Ketones Trace (Negative); Urine Protein 1+(30 mg/dL) (Negative); Urine Specific Gravity 1.002 (1.010-1.030); Urine Urobilinogen Negative (Negative)
[2018-03-14 20:42] LABS: INR 1.02 (0.77-1.02)
[2018-03-14] MEDS: Docusate CAP* 100 MG PO SCH (21:55)
[2018-03-14] MEDS: hydrALAZINE IV* 20 MG/ML VIAL IV PRN (21:55)
[2018-03-14 22:11] LABS: EGFR Non-African American 61.2 (>60)
[2018-03-14] MEDS: NS 0.9% 1000 ML* 1,000 ML IV SCH (23:05)
[2018-03-15 02:36] LABS: EGFR Non-African American 53.4 (>60)
[2018-03-15] MEDS: NS 0.9% 1000 ML* 1,000 ML IV SCH (05:42)
[2018-03-15] MEDS: Heparin VIAL(*) 5000 UNITS/ML VIAL (FIVE THOUSAND) SUBCUT SCH ×3 (05:42→21:52)
[2018-03-15 06:55] LABS: EGFR Non-African American 64.6 (>60)
[2018-03-15] MEDS ORDERED: Potassium Chlor TAB* 20 MEQ TAB.ER PO ONE (09:00)
--- NOTE | 2018-03-15 09:33 | PN ---
Subjective Date of Service: 03/15/18 Interval History: Patient reports she feels much better today and feels like she could go home. Reports her low back pain is "much much better". She denies any trauma and is not sure why she had an increase in pain. She wants to know what she was given that greatly improved her pain as she reports pain meds at home Tramadol and Brule did not seem to be working. Denies numbness, tingling reporting only mild low mid back pain. She denies GAMING, dizziness. Reports good appetite. She states she straight caths d/t incomplete bladder emptying with hx of multiple UTIs Objective Active Medications: Acetaminophen (Tylenol Tab*) 650 mg PO Q6H PRN PRN Reason: FEVER/PAIN Amitriptyline HCl (Elavil Tab*) 25 mg PO QPM [facility] Aspirin (Aspirin Ec Tab*) 81 mg PO DAILY [facility] Docusate Sodium (Colace Cap*) 200 mg PO BID [facility] Last Admin: 03/14/18 21:55 Dose: 200 mg Heparin Sodium (Porcine) (Heparin Vial(*)) 5,000 units SUBCUT Q8HR [facility] Last Admin: 03/15/18 05:42 Dose: 5,000 units Hydralazine HCl (Apresoline Iv*) 10 mg IV Q4H PRN PRN Reason: Systolic >170 Last Admin: 03/14/18 21:55 Dose: 10 mg Sodium Chloride (Ns 0.9% 1000 Ml*) 1,000 mls @ 125 mls/hr IV PER RATE [facility] Last Admin: 03/15/18 05:42 Dose: 125 mls/hr Magnesium Oxide (Magox 400 Tab*) 800 mg PO Q8HR [facility] Stop: 03/16/18 09:59 Melatonin (Melatonin) 3 mg PO BEDTIME PRN; Protocol PRN Reason: Sleep Metoprolol Succinate (Toprol Xl Tab*) 50 mg PO QAM [facility] Omeprazole (Prilosec Cap*) 20 mg PO QPM [facility] Ondansetron HCl (Zofran Odt Tab*) 4 mg PO Q6H PRN PRN Reason: n/v Oxycodone HCl (Roxycodone Tab*) 2.5 mg PO Q4H PRN PRN Reason: PAIN Valsartan (Diovan Tab*) 40 mg PO DAILY [facility] Vital Signs - 8 hr 03/15/18 03/15/18 03/15/18 03:14 07:44 08:00 Temperature 98.1 F 98.2 F Pulse Rate 77 84 Respiratory 20 17 18 Rate Blood Pressure 153/66 176/79 (mmHg) O2 Sat by Pulse 98 96 Oximetry Oxygen Devices in Use Now: None Appearance: well developed 82 yo female sitting on the side of the bed in NAD. A +Ox3 Eyes: No Scleral Icterus, PERRLA Ears/Nose/Mouth/Throat: Mucous Membranes Moist Neck: NL Appearance and Movements; NL JVP Respiratory: Symmetrical Chest Expansion and Respiratory Effort, Clear to Auscultation Cardiovascular: NL Sounds; No Murmurs; No JVD, RRR, No Edema Abdominal: NL Sounds; No Tenderness; No Distention Extremities: No Edema, No Clubbing, Cyanosis, - - No CVA tenderness. T12 area back tenderness with palpation Skin: No Rash or Ulcers, No Nodules or Sclerosis Neurological: Alert and Oriented x 3, NL Sensation, NL Gait, NL Muscle Strength and Tone Lines/Tubes/Other Access: Clean, Dry and Intact Peripheral IV Nutrition: Taking PO's Result Diagrams: 03/14/18 18:10 03/15/18 12:28 Additional Lab and Data: Lab Results 03/14/18 03/14/18 03/14/18 Range/Units 18:10 18:10 18:10 WBC 6.4 (3.5-10.8) 10^3/ul RBC 4.01 (4.0-5.4) 10^6/ul Hgb 12.4 (12.0-16.0) g/dl Hct 36 (35-47) % MCV 90 (80-97) fL MCH 31 (27-31) pg MCHC 35 (31-36) g/dl RDW 14 (10.5-15) % Plt Count 285 (150-450) 10^3/ul MPV 6.6 L (7.4-10.4) um3 Neut % (Auto) 79.7 (38-83) % Lymph % (Auto) 12.5 L (25-47) % [place] % (Auto) 6.9 (0-7) % Eos % (Auto) 0.3 (0-6) % Baso % (Auto) 0.6 (0-2) % Absolute Neuts (auto) 5.1 (1.5-7.7) 10^3/ul Absolute Lymphs (auto) 0.8 L (1.0-4.8) 10^3/ul Absolute Monos (auto) 0.4 (0-0.8) 10^3/ul Absolute Eos (auto) 0 (0-0.6) 10^3/ul Absolute Basos (auto) 0 (0-0.2) 10^3/ul Absolute Nucleated RBC 0 10^3/ul Nucleated RBC % 0.1 Sodium 119 L* (139-145) mmol/L Potassium 3.5 (3.5-5.0) mmol/L Chloride 84 L (101-111) mmol/L Carbon Dioxide 26 (22-32) mmol/L Anion Gap 9 (2-11) mmol/L BUN 15 (6-24) mg/dL Creatinine 0.95 (0.51-0.95) mg/dL Est GFR ( Amer) 72.1 (>60) Est GFR (Non-Af Amer) 56.0 (>60) BUN/Creatinine Ratio 15.8 (8-20) Glucose 107 H (70-100) mg/dL Lactic Acid 0.7 (0.5-2.0) mmol/L Calcium 9.7 (8.6-10.3) mg/dL Total Bilirubin 0.80 (0.2-1.0) mg/dL AST 38 (13-39) U/L ALT 30 (7-52) U/L Alkaline Phosphatase 81 (34-104) U/L C-Reactive Protein 34.81 H (< 5.00) mg/L Total Protein 7.3 (6.4-8.9) g/dL Albumin 4.0 (3.2-5.2) g/dL Globulin 3.3 (2-4) g/dL Albumin/Globulin Ratio 1.2 (1-3) Assess/Plan/Problems-Billing Assessment: 82 yo female with PMH of HTN, GERD, who fell 03/05/18 sustaining a T12 compression fracture and presented to the ER on 03/14 for increased back pain found to have hyponatremia (recently started on HCTZ 5 weeks ago). - Patient Problems (1) Hyponatremia Comment: - improving with IVFs. Decrease NS to 100 ml/hr and recheck BMP at 1200 - suspect secondary to HCTZ started 5 weeks ago. (2) T12 compression fracture Comment: - Mechanical fall on 02/06 in which she was seen in the ED, underwent an xray which showed no acute fracture. She then presented 03/12 to urgent care and underwent a CT scan showing "moderate degree of compression of approx 25-50% of T12 vertebra superior endplate which appears progressive since 03/05/18. Multilevel degenerative disc disease". - Pt in ER was given Decadron 8 mg IV - now reporting her pain has greatly improved. One oxycodone given since admission, none today. Suspect decadron greatly improved her symptoms. - Reports pain medications at home Tramadol and Brule did not seem to be working at home. Will need to consider different pain regimen on discharge - Discussed with Neurosurgery d/t to progressive imaging. no need for brace if neurological intact nad pain is controlled. She has no neuro deficits, currently pain is controlled. Ok to wait and see Dr. Mora as outpt saturday - She has a f/u Saturday as well with her PCP. (3) Electrolyte abnormality Comment: - replace electrolytes, recheck in am (4) Incomplete bladder emptying Comment: - Pt straight caths at home BID - may continue to straight cath (she would prefer not to have a sampson). - Follow with Dr. Wagner. Hx of multiple UTIs (5) HTN (hypertension) Comment: - continue home metoprolol. HOLD HCTZ. Start Norvasc. Hydralyzine PRN (6) GERD (gastroesophageal reflux disease) Comment: - continue PPI (7) Full code status (8) DVT prophylaxis Comment: HSQ Status and Disposition: OBV. Back pain and hyponatremia. Possible DC to home tomorrow.
[2018-03-15] MEDS: Docusate CAP* 100 MG PO SCH ×2 (09:37→21:52)
[2018-03-15] MEDS: Aspirin EC TAB* 81 MG TAB.EC PO SCH (09:37)
[2018-03-15] MEDS: Metoprolol Succinate XL TAB* 50 MG PO SCH (09:37)
[2018-03-15] MEDS: hydrALAZINE IV* 20 MG/ML VIAL IV PRN (09:37)
[2018-03-15] MEDS: Valsartan TAB* 40 MG PO SCH (09:37)
[2018-03-15] MEDS ORDERED: amLODIPine TAB* 5 MG PO ONE (09:42)
[2018-03-15 13:01] LABS: EGFR Non-African American 45.4 (>60)
[2018-03-15] MEDS: Magnesium Oxide TAB* 400 MG PO SCH ×3 (14:05→21:52)
[2018-03-15] MEDS: Omeprazole CAP* 20 MG PO SCH (17:01)
[2018-03-15] MEDS: Amitriptyline TAB* 25 MG PO SCH (17:01)
[2018-03-16] MEDS: oxyCODONE TAB* 5 MG TAB PO PRN ×2 (03:55→08:59)
[2018-03-16] MEDS: NS 0.9% 1000 ML* 1,000 ML IV SCH ×3 (03:58→22:46)
[2018-03-16] MEDS: Magnesium Oxide TAB* 400 MG PO SCH (06:04)
[2018-03-16] MEDS: Heparin VIAL(*) 5000 UNITS/ML VIAL (FIVE THOUSAND) SUBCUT SCH ×3 (06:04→22:46)
[2018-03-16 06:30] LABS: ABS Basophils 0 10^3/ul (0-0.2); ABS Eosinophils 0 10^3/ul (0-0.6); ABS Lymphocytes 1.6 10^3/ul (1.0-4.8); ABS Monocytes 0.6 10^3/ul (0-0.8); ABS Neutrophils 6.1 10^3/ul (1.5-7.7); ABS Nucleated RBC 0 10^3/ul; Eosinophil % 0.4 % (0-6); Hematocrit 31 % (35-47); Hemoglobin 10.7 g/dl (12.0-16.0); Lymphocyte % 18.9 % (25-47); Mean Corpuscular HGB Conc 35 g/dl (31-36); Mean Corpuscular Hemoglobin 31 pg (27-31); Mean Corpuscular Volume 90 fL (80-97); Mean Platelet Volume 6.9 um3 (7.4-10.4); Nucleated Red Blood Cells % 0; Platelet Count 266 10^3/ul (150-450); Red Blood Count 3.43 10^6/ul (4.0-5.4); Red Cell Distribution Width 14 % (10.5-15); White Blood Count 8.4 10^3/ul (3.5-10.8)
[2018-03-16 06:41] LABS: EGFR Non-African American 61.2 (>60)
[2018-03-16] MEDS: Docusate CAP* 100 MG PO SCH ×2 (08:59→19:58)
[2018-03-16] MEDS: Valsartan TAB* 40 MG PO SCH (09:01)
[2018-03-16] MEDS: Metoprolol Succinate XL TAB* 50 MG PO SCH (09:01)
[2018-03-16] MEDS: Aspirin EC TAB* 81 MG TAB.EC PO SCH (09:01)
[2018-03-16] MEDS: amLODIPine TAB* 5 MG PO SCH (09:02)
[2018-03-16] MEDS ORDERED: oxyCODONE TAB* 5 MG TAB PO PRN ×2 (12:22→17:48)
[2018-03-16] MEDS: Cyclobenzaprine TAB* 10 MG PO PRN (12:34)
--- NOTE | 2018-03-16 16:19 | PN ---
Subjective Date of Service: 03/16/18 Interval History: Patient reports her back pain has increased today but is still better than prior to coming to the hospital. She is able to ambulate to the bathroom and back and move independently. no fever or chills. She reports she now feels that she has the beginning of a UTI with lower abdominal pain and increase urine frequently. Denies any hematuria. No N/V/D. Reports good appetite. Patient would maybe like to go home today if her pain is controlled. Objective Active Medications: Acetaminophen (Tylenol Tab*) 650 mg PO Q6H PRN PRN Reason: FEVER/PAIN Amitriptyline HCl (Elavil Tab*) 25 mg PO QPM [facility] Last Admin: 03/15/18 17:01 Dose: 25 mg Amlodipine Besylate (Norvasc Tab*) 5 mg PO DAILY [facility] Last Admin: 03/16/18 09:02 Dose: 5 mg Aspirin (Aspirin Ec Tab*) 81 mg PO DAILY [facility] Last Admin: 03/16/18 09:01 Dose: 81 mg Cyclobenzaprine HCl (Flexeril Tab*) 10 mg PO TID PRN PRN Reason: SPASMS Last Admin: 03/16/18 12:34 Dose: 10 mg Docusate Sodium (Colace Cap*) 200 mg PO BID [facility] Last Admin: 03/16/18 08:59 Dose: 200 mg Heparin Sodium (Porcine) (Heparin Vial(*)) 5,000 units SUBCUT Q8HR [facility] Last Admin: 03/16/18 14:32 Dose: 5,000 units Hydralazine HCl (Apresoline Iv*) 10 mg IV Q4H PRN PRN Reason: Systolic >170 Last Admin: 03/15/18 09:37 Dose: 10 mg Sodium Chloride (Ns 0.9% 1000 Ml*) 1,000 mls @ 100 mls/hr IV PER RATE [facility] Last Admin: 03/16/18 12:36 Dose: 100 mls/hr Melatonin (Melatonin) 3 mg PO BEDTIME PRN; Protocol PRN Reason: Sleep Metoprolol Succinate (Toprol Xl Tab*) 50 mg PO QAM [facility] Last Admin: 03/16/18 09:01 Dose: 50 mg Omeprazole (Prilosec Cap*) 20 mg PO QPM [facility] Last Admin: 03/15/18 17:01 Dose: 20 mg Ondansetron HCl (Zofran Odt Tab*) 4 mg PO Q6H PRN PRN Reason: n/v Oxycodone HCl (Roxycodone Tab*) 5 mg PO Q4H PRN PRN Reason: PAIN Last Admin: 03/16/18 12:34 Dose: 5 mg Valsartan (Diovan Tab*) 40 mg PO DAILY [facility] Last Admin: 03/16/18 09:01 Dose: 40 mg Vital Signs - 8 hr 03/16/18 03/16/18 03/16/18 08:59 11:05 11:11 Respiratory 18 18 18 Rate 03/16/18 03/16/18 12:34 14:33 Respiratory 18 18 Rate Oxygen Devices in Use Now: None Appearance: 82 yo female sitting up in bed in NAD. A+Ox3 Eyes: No Scleral Icterus, PERRLA Ears/Nose/Mouth/Throat: NL Teeth, Lips, Gums, Mucous Membranes Moist Neck: NL Appearance and Movements; NL JVP Respiratory: Symmetrical Chest Expansion and Respiratory Effort, Clear to Auscultation Cardiovascular: NL Sounds; No Murmurs; No JVD, RRR, No Edema Abdominal: - - suprapubic tenderness, mild. no CVA tenderness Extremities: No Edema, No Clubbing, Cyanosis Skin: No Rash or Ulcers, No Nodules or Sclerosis Neurological: Alert and Oriented x 3, NL Sensation, NL Gait, NL Muscle Strength and Tone Lines/Tubes/Other Access: Clean, Dry and Intact Peripheral IV Nutrition: Taking PO's Result Diagrams: 03/16/18 05:57 03/16/18 05:57 Additional Lab and Data: Lab Results 03/14/18 03/14/18 03/14/18 Range/Units 18:10 18:10 18:10 WBC 6.4 (3.5-10.8) 10^3/ul RBC 4.01 (4.0-5.4) 10^6/ul Hgb 12.4 (12.0-16.0) g/dl Hct 36 (35-47) % MCV 90 (80-97) fL MCH 31 (27-31) pg MCHC 35 (31-36) g/dl RDW 14 (10.5-15) % Plt Count 285 (150-450) 10^3/ul MPV 6.6 L (7.4-10.4) um3 Neut % (Auto) 79.7 (38-83) % Lymph % (Auto) 12.5 L (25-47) % [place] % (Auto) 6.9 (0-7) % Eos % (Auto) 0.3 (0-6) % Baso % (Auto) 0.6 (0-2) % Absolute Neuts (auto) 5.1 (1.5-7.7) 10^3/ul Absolute Lymphs (auto) 0.8 L (1.0-4.8) 10^3/ul Absolute Monos (auto) 0.4 (0-0.8) 10^3/ul Absolute Eos (auto) 0 (0-0.6) 10^3/ul Absolute Basos (auto) 0 (0-0.2) 10^3/ul Absolute Nucleated RBC 0 10^3/ul Nucleated RBC % 0.1 Sodium 119 L* (139-145) mmol/L Potassium 3.5 (3.5-5.0) mmol/L Chloride 84 L (101-111) mmol/L Carbon Dioxide 26 (22-32) mmol/L Anion Gap 9 (2-11) mmol/L BUN 15 (6-24) mg/dL Creatinine 0.95 (0.51-0.95) mg/dL Est GFR ( Amer) 72.1 (>60) Est GFR (Non-Af Amer) 56.0 (>60) BUN/Creatinine Ratio 15.8 (8-20) Glucose 107 H (70-100) mg/dL Lactic Acid 0.7 (0.5-2.0) mmol/L Calcium 9.7 (8.6-10.3) mg/dL Total Bilirubin 0.80 (0.2-1.0) mg/dL AST 38 (13-39) U/L ALT 30 (7-52) U/L Alkaline Phosphatase 81 (34-104) U/L C-Reactive Protein 34.81 H (< 5.00) mg/L Total Protein 7.3 (6.4-8.9) g/dL Albumin 4.0 (3.2-5.2) g/dL Globulin 3.3 (2-4) g/dL Albumin/Globulin Ratio 1.2 (1-3) Assess/Plan/Problems-Billing Assessment: 82 yo female with PMH of HTN, GERD, who fell 03/05/18 sustaining a T12 compression fracture and presented to the ER on 03/14 for increased back pain found to have hyponatremia (recently started on HCTZ 5 weeks ago). - Patient Problems (1) Hyponatremia Comment: - Improving with IVFs. Decrease NS to 75 ml/hr - suspect secondary to HCTZ started 5 weeks ago. (2) T12 compression fracture Comment: - Mechanical fall on 02/06 in which she was seen in the ED, underwent an xray which showed no acute fracture. She then presented 03/12 to urgent care and underwent a CT scan showing "moderate degree of compression of approx 25-50% of T12 vertebra superior endplate which appears progressive since 03/05/18. Multilevel degenerative disc disease". - Pt in ER was given Decadron 8 mg IV - now reporting her pain has greatly improved. One oxycodone given since admission, none today. Suspect decadron and or muscle relaxer greatly improved her symptoms. - Reports pain medications at home Tramadol and [place] did not seem to be working at home. Will need to consider different pain regimen on discharge - currently on Oxycodone and started flexeril today - if improved plan to DC to home this afternoon - Discussed with Neurosurgery d/t to progressive imaging. no need for brace if neurological intact and pain is controlled. She has no neuro deficits, currently pain is fairly well controlled. Ok to wait and see Dr. Mora as outpt saturday - She has a f/u Saturday as well with her PCP. (3) UTI (urinary tract infection) Comment: - Growing Strep Group B with colony count 50K, d/t symptoms will start her on augmentin (4) Electrolyte abnormality Comment: - replace electrolytes, recheck in am (5) Incomplete bladder emptying Comment: - Pt straight caths at home BID - may continue to straight cath (she would prefer not to have a sampson). - Follow with Dr. Wagner. Hx of multiple UTIs (6) HTN (hypertension) Comment: - continue home metoprolol. HOLD HCTZ. Start Norvasc. Hydralyzine PRN (7) GERD (gastroesophageal reflux disease) Comment: - continue PPI (8) Full code status (9) DVT prophylaxis Comment: HSQ Status and Disposition: OBV. Back pain and hyponatremia. Possible DC to home today or tomorrow
[2018-03-16] MEDS: Amitriptyline TAB* 25 MG PO SCH (17:51)
[2018-03-16] MEDS: Omeprazole CAP* 20 MG PO SCH (17:52)
[2018-03-16] MEDS: oxyCODONE SR TAB(*) 10 MG TAB.SR PO SCH (19:58)
[2018-03-16] MEDS: Amoxicillin/Clavulanate TAB* 875 MG PO SCH (19:58)
[2018-03-16] MEDS ORDERED: Lidocaine PATCH 5%* 1 PATCH TRANSDERM SCH (20:00)
[2018-03-16] MEDS ORDERED: Lidocaine Patch REMOVE* 1 NOTE MISC SCH (21:00)
[2018-03-17] MEDS: Cyclobenzaprine TAB* 10 MG PO PRN (04:12)
[2018-03-17] MEDS: Heparin VIAL(*) 5000 UNITS/ML VIAL (FIVE THOUSAND) SUBCUT SCH ×2 (05:39→14:10)
[2018-03-17 06:20] LABS: ABS Basophils 0.1 10^3/ul (0-0.2); ABS Eosinophils 0.1 10^3/ul (0-0.6); ABS Lymphocytes 1.3 10^3/ul (1.0-4.8); ABS Monocytes 0.6 10^3/ul (0-0.8); ABS Neutrophils 4.3 10^3/ul (1.5-7.7); ABS Nucleated RBC 0 10^3/ul; Eosinophil % 1.5 % (0-6); Hematocrit 31 % (35-47); Hemoglobin 10.8 g/dl (12.0-16.0); Lymphocyte % 20.9 % (25-47); Mean Corpuscular HGB Conc 35 g/dl (31-36); Mean Corpuscular Hemoglobin 31 pg (27-31); Mean Corpuscular Volume 90 fL (80-97); Mean Platelet Volume 6.5 um3 (7.4-10.4); Nucleated Red Blood Cells % 0; Platelet Count 241 10^3/ul (150-450); Red Blood Count 3.44 10^6/ul (4.0-5.4); Red Cell Distribution Width 14 % (10.5-15); White Blood Count 6.4 10^3/ul (3.5-10.8)
[2018-03-17 06:41] LABS: EGFR Non-African American 82.4 (>60)
[2018-03-17] MEDS: Aspirin EC TAB* 81 MG TAB.EC PO SCH (07:55)
[2018-03-17] MEDS: Valsartan TAB* 40 MG PO SCH (07:56)
[2018-03-17] MEDS: Docusate CAP* 100 MG PO SCH (07:57)
[2018-03-17] MEDS: Amoxicillin/Clavulanate TAB* 875 MG PO SCH (07:57)
[2018-03-17] MEDS: amLODIPine TAB* 5 MG PO SCH (07:58)
[2018-03-17] MEDS: Metoprolol Succinate XL TAB* 50 MG PO SCH (07:59)
[2018-03-17] MEDS: oxyCODONE SR TAB(*) 10 MG TAB.SR PO SCH (08:00)
[2018-03-17] MEDS ORDERED: Lidocaine Patch REMOVE* 1 NOTE MISC PATCH OFF SCH (08:00)
[2018-03-17] MEDS ORDERED: Lidocaine PATCH 5%* 1 PATCH TRANSDERM SCH ×2 (09:00→20:00)
[2018-03-17] MEDS: NS 0.9% 1000 ML* 1,000 ML IV SCH (09:49)
--- NOTE | 2018-03-17 13:07 | DCNOTE ---
Subjective Date of Service: 03/17/18 Interval History: Patient reports her pain is better today but still has back pain, she feels like she can go home. No fever or chills. Denies numbness/tingling/dizziness. Feels steady on her feet. Objective Active Medications: Acetaminophen (Tylenol Tab*) 650 mg PO Q6H PRN PRN Reason: FEVER/PAIN Last Admin: 03/17/18 04:11 Dose: 650 mg Amitriptyline HCl (Elavil Tab*) 25 mg PO QPM [facility] Last Admin: 03/16/18 17:51 Dose: 25 mg Amlodipine Besylate (Norvasc Tab*) 5 mg PO DAILY [facility] Last Admin: 03/17/18 07:58 Dose: 5 mg Amoxicillin/Clavulanate Potassium (Augmentin Tab*) 875 mg PO BID [facility] Last Admin: 03/17/18 07:57 Dose: 875 mg Aspirin (Aspirin Ec Tab*) 81 mg PO DAILY [facility] Last Admin: 03/17/18 07:55 Dose: 81 mg Cyclobenzaprine HCl (Flexeril Tab*) 10 mg PO TID PRN PRN Reason: SPASMS Last Admin: 03/17/18 04:12 Dose: 10 mg Docusate Sodium (Colace Cap*) 200 mg PO BID [facility] Last Admin: 03/17/18 07:57 Dose: 200 mg Heparin Sodium (Porcine) (Heparin Vial(*)) 5,000 units SUBCUT Q8HR [facility] Last Admin: 03/17/18 05:39 Dose: 5,000 units Hydralazine HCl (Apresoline Iv*) 10 mg IV Q4H PRN PRN Reason: Systolic >170 Last Admin: 03/15/18 09:37 Dose: 10 mg Sodium Chloride (Ns 0.9% 1000 Ml*) 1,000 mls @ 100 mls/hr IV PER RATE [facility] Last Admin: 03/17/18 09:49 Dose: 100 mls/hr Lidocaine (Lidoderm 5% Patch*) 1 patch TRANSDERM DAILY@1999 [facility] Melatonin (Melatonin) 3 mg PO BEDTIME PRN; Protocol PRN Reason: Sleep Metoprolol Succinate (Toprol Xl Tab*) 50 mg PO QAM [facility] Last Admin: 03/17/18 07:59 Dose: 50 mg Omeprazole (Prilosec Cap*) 20 mg PO QPM [facility] Last Admin: 03/16/18 17:52 Dose: 20 mg Ondansetron HCl (Zofran Odt Tab*) 4 mg PO Q6H PRN PRN Reason: n/v Oxycodone HCl (Roxycodone Tab*) 2.5 mg PO Q6H PRN PRN Reason: PAIN Oxycodone HCl (Oxycontin(*)) 10 mg PO BID [facility] Last Admin: 03/17/18 08:00 Dose: 10 mg Pharmacy Profile Note (Lidocaine Patch Remove*) 1 note PATCH OFF 0800 [facility] Last Admin: 03/17/18 08:03 Dose: 1 note Valsartan (Diovan Tab*) 40 mg PO DAILY [facility] Last Admin: 03/17/18 07:56 Dose: 40 mg Vital Signs - 8 hr 03/17/18 03/17/18 03/17/18 05:54 07:24 08:00 Temperature 97.5 F Pulse Rate 62 Respiratory 16 16 16 Rate Blood Pressure 162/66 (mmHg) O2 Sat by Pulse 98 Oximetry Oxygen Devices in Use Now: None Appearance: well developed elderly female A+O x3 in NAD Eyes: No Scleral Icterus, PERRLA Ears/Nose/Mouth/Throat: NL Teeth, Lips, Gums, Mucous Membranes Moist Neck: NL Appearance and Movements; NL JVP Respiratory: Symmetrical Chest Expansion and Respiratory Effort, Clear to Auscultation Cardiovascular: NL Sounds; No Murmurs; No JVD, RRR, No Edema Abdominal: NL Sounds; No Tenderness; No Distention Extremities: No Edema, No Clubbing, Cyanosis Skin: No Rash or Ulcers, No Nodules or Sclerosis Neurological: Alert and Oriented x 3, NL Sensation, NL Gait, NL Muscle Strength and Tone Lines/Tubes/Other Access: Clean, Dry and Intact Peripheral IV Nutrition: Taking PO's Result Diagrams: 03/17/18 05:51 03/17/18 05:51 Additional Lab and Data: Lab Results 03/14/18 03/14/18 03/14/18 Range/Units 18:10 18:10 18:10 WBC 6.4 (3.5-10.8) 10^3/ul RBC 4.01 (4.0-5.4) 10^6/ul Hgb 12.4 (12.0-16.0) g/dl Hct 36 (35-47) % MCV 90 (80-97) fL MCH 31 (27-31) pg MCHC 35 (31-36) g/dl RDW 14 (10.5-15) % Plt Count 285 (150-450) 10^3/ul MPV 6.6 L (7.4-10.4) um3 Neut % (Auto) 79.7 (38-83) % Lymph % (Auto) 12.5 L (25-47) % Wise % (Auto) 6.9 (0-7) % Eos % (Auto) 0.3 (0-6) % Baso % (Auto) 0.6 (0-2) % Absolute Neuts (auto) 5.1 (1.5-7.7) 10^3/ul Absolute Lymphs (auto) 0.8 L (1.0-4.8) 10^3/ul Absolute Monos (auto) 0.4 (0-0.8) 10^3/ul Absolute Eos (auto) 0 (0-0.6) 10^3/ul Absolute Basos (auto) 0 (0-0.2) 10^3/ul Absolute Nucleated RBC 0 10^3/ul Nucleated RBC % 0.1 Sodium 119 L* (139-145) mmol/L Potassium 3.5 (3.5-5.0) mmol/L Chloride 84 L (101-111) mmol/L Carbon Dioxide 26 (22-32) mmol/L Anion Gap 9 (2-11) mmol/L BUN 15 (6-24) mg/dL Creatinine 0.95 (0.51-0.95) mg/dL Est GFR ( Amer) 72.1 (>60) Est GFR (Non-Af Amer) 56.0 (>60) BUN/Creatinine Ratio 15.8 (8-20) Glucose 107 H (70-100) mg/dL Lactic Acid 0.7 (0.5-2.0) mmol/L Calcium 9.7 (8.6-10.3) mg/dL Total Bilirubin 0.80 (0.2-1.0) mg/dL AST 38 (13-39) U/L ALT 30 (7-52) U/L Alkaline Phosphatase 81 (34-104) U/L C-Reactive Protein 34.81 H (< 5.00) mg/L Total Protein 7.3 (6.4-8.9) g/dL Albumin 4.0 (3.2-5.2) g/dL Globulin 3.3 (2-4) g/dL Albumin/Globulin Ratio 1.2 (1-3) Assess/Plan/Problems-Billing Assessment: 82 yo female with PMH of HTN, GERD, who fell 03/05/18 sustaining a T12 compression fracture and presented to the ER on 03/14 for increased back pain found to have hyponatremia (recently started on HCTZ 5 weeks ago). - Patient Problems (1) Hyponatremia Comment: - Improving with IVFs. - suspect secondary to HCTZ started 5 weeks ago. - repeat Na+ as outpt in 2-3 days (2) T12 compression fracture Comment: - Mechanical fall on 02/06 in which she was seen in the ED, underwent an xray which showed no acute fracture. She then presented 03/12 to urgent care and underwent a CT scan showing "moderate degree of compression of approx 25-50% of T12 vertebra superior endplate which appears progressive since 03/05/18. Multilevel degenerative disc disease". - Pt in ER was given Decadron 8 mg IV - now reporting her pain has greatly improved. One oxycodone given since admission, none today. Suspect decadron and or muscle relaxer greatly improved her symptoms. - Reports pain medications at home Tramadol and Vernalis did not seem to be working at home. Started on Oxycodone SR 10 mg Q12 and Lidocain patch and she reports much better relief, does not feel sedated. - Discussed with Neurosurgery Dr. Ferguson d/t to progressive imaging on admission. no need for brace if neurological intact and pain is controlled. She has no neuro deficits, currently pain is fairly well controlled. Ok to wait and see Dr. Mora as outpt this afternoon - She has a f/u today as well with her PCP. I spoke to PCP and gave update (3) UTI (urinary tract infection) Comment: - Growing Strep Group B with colony count 50K, d/t symptoms - continue course of augmentin (4) Electrolyte abnormality Comment: - resolved (5) Incomplete bladder emptying Comment: - Pt straight caths at home BID - may continue to straight cath (she would prefer not to have a sampson). - Follow with Dr. Vorha. Hx of multiple UTIs (6) HTN (hypertension) Comment: - continue home metoprolol. HOLD HCTZ. Start Norvasc. Hydralyzine PRN (7) GERD (gastroesophageal reflux disease) Comment: - continue PPI (8) Full code status (9) DVT prophylaxis Comment: HSQ Status and Disposition: OBV. Back pain, hyponatremia and UTI DC to home today
[2018-03-17 13:30] VITALS: BP 137/51
--- NOTE | 2018-03-18 09:38 | DS ---
CC: Dr. Kandace Osborne * DISCHARGE SUMMARY: DATE OF ADMISSION: 03/14/18 DATE OF DISCHARGE: 03/17/18 PROVIDER: Suzanna Gibson NP ATTENDING PHYSICIAN: Dr. Benoit.* (DICTATED BY SUZANNA GIBSON NP) PRIMARY CARE PROVIDER: Dr. Kandace Osborne. Referred to as outpatient (new patient) NEUROSURGEON: Dr. Castro. DISCHARGE DIAGNOSES: 1. Intractable back pain secondary to T12 compression fracture. 2. Hyponatremia, suspect medication related. 3. Urinary tract infection with group streptococcus B with history of chronic incomplete bladder emptying with daily straight catheterization procedure. 4. Hypertension. SECONDARY DIAGNOSES: 1. Hypertension. 2. Gastroesophageal reflux disease. HISTORY OF PRESENT ILLNESS AND HOSPITAL COURSE: Please see history and physical by Dr. Whitfield for full admission details, but in summary this is a very pleasant 82-year-old woman who fell on 03/05/18 sustaining a T12 compression fracture in which she was seen at urgent care, underwent an x-ray showing no fracture. The patient had increased pain, she presented back to urgent care in which she underwent a lumbar spine CT, which showed the T12 compression fracture at that time. The patient was sent home at that time with pain medication and a followup with Dr. Castro, neurosurgeon, with an appointment scheduled for today. The patient presented to the emergency room on 03/14/18 due to that her pain continued to be uncontrolled. She was admitted to the hospitalist service for intractable back pain. She initially in the emergency department was given 8 mg of Decadron IV and Norflex IV, almost resolving the patient's pain and the next day after admission, 03/15, the patient had reported much improved pain throughout that day. However, the next day, yesterday morning on 03/16/18, the pain started to present itself again and the patient's p.r.n. oxycodone was not working as well as she was trialed on Flexeril which made her feel drowsy. The patient was switched to long- acting oxycodone, low dose of 10 mg which today the patient reports is working well for her. As well, the patient was started on lidocaine patch which she does report some relief. She reports that she feels stable to go home today. She has been ambulating to the bathroom and back, can feel steady on her feet. The plan is for her to follow up with Neurosurgery this afternoon for an evaluation. I did speak with Dr. Ferguson, the on-call neurosurgeon over the weekend, who reported the patient's pain is controlled and neurologically intact. She does not require a brace. The patient does have a normal neurological exam and the pain is controlled; therefore, will hold off on the brace and have Dr. Castro follow up today as an outpatient. As well, the patient presented with hyponatremia with a sodium of 119. She was asymptomatic to this. However, I do wonder if this contributed to her fall. It is suspected that this is secondary to hydrochlorothiazide that was started approximately 5 to 6 weeks ago. This was discontinued on admission. She was given gentle normal saline and her sodium has increased up to 131. She should have her sodium rechecked in 2 to 3 days. As well the patient was noted to have an abnormal urinalysis with urine the culture growing strep group B with a low colony count of 25 to 50K colony count ; however, the patient was reporting she feels like she was getting urinary tract infection. She did continue the straight cath throughout hospitalization. She had some suprapubic tenderness. No flank pain. No fevers. No noted leukocytosis. However, due to the fact that she straight cath's and has urinary tract like symptoms, I do think it will be important to treat the patient; she and I discussed this. She agrees with the plan to do a course of Augmentin. Hypertension. Due to the fact that we discontinued her hydrochlorothiazide combo medication on admission, the patient was slightly hypertensive throughout hospitalization and Norvasc 5 mg was added on to her regimen which she has tolerated well with stabilized blood pressures. I did discuss her hospitalization with her primary care provider, Dr. Kandace Osborne, who will see the patient this afternoon for a followup. DISCHARGE MEDICATIONS: 1. Acetaminophen 1000 mg p.o. q.8 hours p.r.n. 2. Calcium carbonate with vitamin D 1 tab p.o. q.a.m. 3. Aspirin 81 mg p.o. daily. 4. Amitriptyline 25 mg p.o. q.p.m. 5. Metoprolol succinate XL 50 mg p.o. q.a.m. 6. Vitamin D 1000 units p.o. daily. 7. Omeprazole 20 mg p.o. q.p.m. New medications: 1. Augmentin 875 mg p.o. b.i.d. x7 days. 2. Lidocaine patch 1 patch transderm daily q.12 hours on, 12 hours off. 3. Amlodipine 5 mg p.o. daily. 4. Oxycodone SR 10 mg p.o. b.i.d. p.r.n. I did discuss with the patient to try this once daily and she may increase to b.i.d. every 12 hours. DISCHARGE PLAN: 1. The patient has a followup appointment with Dr. Castro this afternoon as a new patient 2. Follow up with Dr. Kandace Osborne this afternoon. 3. The patient should have a BMP to check her sodium level in 2 or 3 days. 4. The patient may benefit from outpatient physical therapy. 5. The patient is safe for discharge to home. The daughter agrees with plan of care who lives close to the patient and will help her in the next coming weeks. TIME SPENT: Approximately 60 minutes was spent on this discharge. SUZANNA GIBSON, NATA [id number]/[facility] #: [id number] HERBERT
== END 2018-03-17 14:19 | disposition home or self-care (01) | DRG 552 ==
LOC: ED 15:59 → MEDTELE 19:39 → OBSVTOIN 03-15 11:53
PROVIDERS: ADMIT Hospitalist; ATTEND Hospitalist
DX: S22.089A Unspecified fracture of T11-T12 vertebra, initial encounter for closed fracture (principal); E87.1 Hypo-osmolality and hyponatremia; N39.0 Urinary tract infection, site not specified; T50.2X5A Adverse effect of carbonic-anhydrase inhibitors, benzothiadiazides and other diuretics, initial encounter; W18.30XA Fall on same level, unspecified, initial encounter; B95.1 Streptococcus, group B, as the cause of diseases classified elsewhere; I10 Essential (primary) hypertension; K21.9 Gastro-esophageal reflux disease without esophagitis; R33.9 Retention of urine, unspecified; Y92.009 Unspecified place in unspecified non-institutional (private) residence as the place of occurrence of the external cause; Z79.82 Long term (current) use of aspirin; Z79.1 Long term (current) use of non-steroidal anti-inflammatories (NSAID); Z79.891 Long term (current) use of opiate analgesic; Z79.899 Other long term (current) drug therapy; Z91.040 Latex allergy status
CPT/HCPCS: 36415; 72131; 80048; 80053; 81003; 81015; 83605; 83735; 85025; 85610; 85730; 86140; 87077; 87086; 99212; 99284; A9270-GY; G0463; J0360; J1100; J1644; J1885; J2360

== ENCOUNTER 2018-06-09 14:50 | Emergency (ER) | payer MEDICARE, BC ==
[2018-06-09 15:07] VITALS: BP 125/90
[2018-06-09] MEDS ORDERED: Aspirin 81 mg CHEW TAB* 81 MG TAB.CHEW PO ONE (15:14)
[2018-06-09] MEDS ORDERED: Aspirin 81 mg CHEW TAB* 81 MG TAB.CHEW ONE (15:16)
--- NOTE | 2018-06-09 15:22 | UC ---
Palpitation/Dysrhythmia HP - HPI Summary HPI Summary: The patient is an 82-year-old female that presents here for evaluation of a rapid irregular pulse. She states that she had A. fib about 10 years ago due to taking too much Synthroid. Denies any chest pain or shortness of breath currently. She has felt mildly weak and dizzy today. She states that she woke up about 2:00 this morning with some substernal chest pressure. The pain was mild but annoying enough to keep her awake for 2-3 hours. The chest pressure she had no dyspnea nausea diaphoresis. - History of Current Complaint Chief Complaint: UCCardiac Stated Complaint: ELEVATED PULSE Time Seen by Provider: 06/09/18 15:06 Hx Obtained From: Patient Onset/Duration: Sudden Onset, Lasting Hours Timing: Constant Severity Initially: Mild Severity Currently: Mild Pain Intensity: 0 Pain Scale Used: 0-10 Numeric Character: Fast, Irregular Aggravating Factor(s): Nothing Alleviating Factor(s): Nothing Associated Signs & Symptoms: Positive: Lightheadedness, Dizzy - Allergy/Home Medications Allergies/Adverse Reactions: Allergies Allergy/AdvReac Type Severity Reaction Status Date / Time latex Allergy Rash Verified 06/09/18 15:02 PMH/Surg Hx/FS Hx/Imm Hx Previously Healthy: Yes Endocrine History: Thyroid Disease Cardiovascular History: Hypertension, Atrial Fibrillation - Surgical History Surgical History: Yes Surgery Procedure, Year, and Place: (20-30 YEARS AGO) DILATION AND CURETTAGE, [facility] [place]. 1995 LEFT HEEL SPUR EXCISION, [facility] [place]. 2006 EXPLORATORY BLADDER SURGERY, [facility] [place]. SEVERAL BASAL CELL CARCINOMA REMOVAL. RIGHT EYE CATARACT EXTRACTION 2013 - Family History Known Family History: Negative: Cardiac Disease, Diabetes - Social History Alcohol Use: Occasionally Alcohol Amount: OCCASIONAL VODKA SOUR Substance Use Type: None Smoking Status (MU): Never Smoked Tobacco - Immunization History Most Recent Influenza Vaccination: in the past year Most Recent Pneumonia Vaccination: in the past at some time Review of Systems Constitutional: Negative Skin: Negative Eyes: Negative ENT: Negative Respiratory: Negative Cardiovascular: Palpitations Gastrointestinal: Negative Genitourinary: Negative Motor: Negative Neurovascular: Negative Musculoskeletal: Negative Neurological: Weakness - generalized Psychological: Negative Is Patient Immunocompromised?: No All Other Systems Reviewed And Are Negative: Yes Physical Exam Triage Information Reviewed: Yes Appearance: Well-Appearing, No Pain Distress, Well-Nourished Vital Signs: Initial Vital Signs Temp 98.4 F 06/09/18 15:04 Pulse 145 06/09/18 15:04 Resp 18 06/09/18 15:04 BP 125/90 06/09/18 15:04 Pulse Ox 97 06/09/18 15:04 Vital Signs Reviewed: Yes Eyes: Positive: Conjunctiva Clear ENT: Positive: Hearing grossly normal. Negative: Nasal congestion, Nasal drainage, Trismus Neck: Positive: Supple, Nontender Respiratory: Positive: Lungs clear, Normal breath sounds, No respiratory distress, No accessory muscle use Cardiovascular: Positive: No Murmur. Negative: RRR Abdomen Description: Positive: Nontender, No Organomegaly Musculoskeletal: Positive: ROM Intact, No Edema Neurological: Positive: Alert Psychological Exam: Normal Skin Exam: Normal Diagnostics - EKG Cardiac Rate: Tachycardia Cardiac Rhythm: AFib: Normal Ectopy: None ST Segment: Non-Specific - mild lat ST depressions Palpitations Course/Dx - Course Course Of Treatment: D/W Dr. Oro. To [facility] [place] er via EMS - Differential Dx/Diagnosis Provider Diagnoses: atrial fibrillation with rapid ventricular response Discharge - Sign-Out/Discharge Documenting (check all that apply): Patient Departure All imaging exams completed and their final reports reviewed: No Studies - Discharge Plan Condition: Stable Disposition: TRANS HIGHER LVL OF CARE FAC Referrals: Kandace Osborne MD [Primary Care Provider] - - Billing Disposition and Condition Condition: STABLE Disposition: Trans Higher Lvl of Care Fac
== END 2018-06-09 15:35 | disposition short-term general hospital (02) ==
LOC: UCEAST 14:50
DX: I48.91 Unspecified atrial fibrillation (principal); R42 Dizziness and giddiness; R07.89 Other chest pain; I10 Essential (primary) hypertension; R53.1 Weakness; Z91.040 Latex allergy status
CPT/HCPCS: 93005; 99213; A9270-GY; G0463

== ENCOUNTER 2018-06-09 15:51 | Inpatient (IN) | payer MEDICARE, BC ==
--- NOTE | 2018-06-09 16:22 | ED ---
Palpitations / Dysrhythmia - HPI Summary HPI Summary: The pt is an 82 y/o female with a PMhx of Afib BIBA to the [facility] c/o of palpitations since 14:30 today. She was sent from [facility] for uncontrolled Afib.The pt notes CP (not actively present) but denies any SOB and difficulty ambulating. As per EMS her heart rate was 142 en route. The pt was seen at [facility] 3 months ago for hyponatremia. She does not have any atmospheric physicist. - History of Current Complaint Chief Complaint: EDDysrhythmPalp Time Seen by Provider: 06/09/18 16:12 Hx Obtained From: Patient Onset/Duration: Sudden Onset Alleviating: Nothing Associated Signs & Symptoms: Negative - SOB, difficulty ambulating - Allergy/Home Medications Allergies/Adverse Reactions: Allergies Allergy/AdvReac Type Severity Reaction Status Date / Time latex Allergy Rash Verified 06/09/18 16:20 PMH/Surg Hx/FS Hx/Imm Hx Previously Healthy: No Endocrine/Hematology History: Reports: Hx Thyroid Disease Denies: Hx Diabetes Cardiovascular History: Reports: Hx Hypertension - control with medication, Other Cardiovascular Problems/Disorders - Ankle swelling on plane and with heat Denies: Hx Valvular Heart Disease Respiratory History: Denies: Other Respiratory Problems/Disorders GI History: Reports: Hx Gastroesophageal Reflux Disease - DYSPEPSIA, on medication Denies: Other GI Disorders History: Reports: Other Problems/Disorders - Freq UTI 2-3 a years, none in 2 years, self catheterizes BID,sees Dr Hunter Musculoskeletal History: Reports: Hx Arthritis - generalized osteoarthritis, Other Musculoskeletal History - bone spurs on right shoulder, painful Sensory History: Reports: Hx Cataracts - Left eye cataract at present, Right eye cataract removed, Hx Hearing Aid Denies: Hx Contacts or Glasses Opthamlomology History: Reports: Hx Cataracts - Left eye cataract at present, Right eye cataract removed Denies: Hx Contacts or Glasses Neurological History: Denies: Other Neuro Impairments/Disorders Psychiatric History: Reports: Hx Anxiety - history of, none recent - Cancer History Cancer Type, Location and Year: skin ca - Surgical History Surgery Procedure, Year, and Place: (20-30 YEARS AGO) DILATION AND CURETTAGE, [facility]. 1996 LEFT HEEL SPUR EXCISION, [facility]. 2006 EXPLORATORY BLADDER SURGERY, [facility]. SEVERAL BASAL CELL CARCINOMA REMOVAL. RIGHT EYE CATARACT EXTRACTION 2014 Hx Anesthesia Reactions: No - Immunization History Date of Tetanus Vaccine: a few years ago Date of Influenza Vaccine: 2017 Infectious Disease History: No Infectious Disease History: Reports: Hx Shingles Denies: Traveled Outside the [place] in Last 30 Days - Family History Known Family History: Negative: Cardiac Disease, Diabetes - Social History Occupation: Retired Lives: With Family Alcohol Use: Occasionally Alcohol Amount: OCCASIONAL VODKA SOUR Hx Substance Use: No Substance Use Type: Reports: None Hx Tobacco Use: No Smoking Status (MU): Never Smoked Tobacco Review of Systems Positive: Palpitations Negative: Shortness Of Breath Musculoskeletal: Negative - Difficulty ambulating All Other Systems Reviewed And Are Negative: Yes Physical Exam - Summary Physical Exam Summary: Appearance: The patient is well-nourished in no acute distress and in no acute pain. Skin: The skin is warm and dry and skin color reflects adequate perfusion. HEENT: The head is normocephalic and atraumatic. The pupils are equal and reactive. The conjunctivae are clear and without drainage. Nares are patent and without drainage. Mouth reveals moist mucous membranes and the throat is without erythema and exudate. The external ears are intact. The ear canals are patent and without drainage. The tympanic membranes are intact. Neck: The neck is supple with full range of motion and non-tender. There are no carotid bruits. There is no neck vein distension. Respiratory: Chest is non-tender. Lungs are clear to auscultation and breath sounds are symmetrical and equal. Cardiovascular: Irregularly irregular heart rate . There is no murmur or rub auscultated. There is no peripheral edema and pulses are symmetrical and equal. Abdomen: The abdomen is soft and non-tender. There are normal bowel sounds heard in all four quadrants and there is no organomegaly palpated. Musculoskeletal: There is no back tenderness noted. Extremities are non-tender with full range of motion. There is good capillary refill. There is no peripheral edema or calf tenderness elicited. Neurological: Patient is alert and oriented to person, place and time. The patient has symmetrical motor strength in all four extremities. Cranial nerves are grossly intact. Deep tendon reflexes are symmetrical and equal in all four extremities. Psychiatric: The patient has an appropriate affect and does not exhibit any anxiety or depression. Triage Information Reviewed: Yes Vital Signs On Initial Exam: Initial Vitals Temp Pulse Resp BP Pulse Ox 97.6 F 142 18 129/94 96 06/09/18 16:09 06/09/18 16:09 06/09/18 16:09 06/09/18 16:09 06/09/18 16:09 Vital Signs Reviewed: Yes Diagnostics - Vital Signs Vital Signs Temp Pulse Resp BP Pulse Ox 06/09/18 16:09 97.6 F 142 18 129/94 96 - Laboratory Result Diagrams: 06/09/18 16:30 06/09/18 16:30 Lab Statement: Any lab studies that have been ordered have been reviewed, and results considered in the medical decision making process. - EKG 16:19 EKG Rhythm: Atrial Fibrillation - 142 bpm; RVR EKG Interpretation: Abnormal EKG Course/Dx - Course Course Of Treatment: Ms. Jefferson presented to the emergency department as a transfer from [facility] in atrial fibrillation with RVR. She was essentially asymptomatic with it although she had chest pain during the night. She was slowed with Cardizem although her pressures were soft. The hospitalists were consulted for admission and observation. - Diagnoses Provider Diagnoses: Atrial fibrillation with RVR - Physician Notifications Discussed Care Of Patient With: Elen Benoit Time Discussed With Above Provider: 17:10 Instructed by Provider To: Admit As Inpatient - Spoke with ROSA Díaz on behalf of Elen Weiner MD - Critical Care Time Critical Care Time: 30-74 min Discharge - Sign-Out/Discharge Documenting (check all that apply): Patient Departure - Discharge Plan Condition: Stable Disposition: ADMITTED TO [facility] - Billing Disposition and Condition Condition: STABLE Disposition: Admitted to [facility] - Attestation Statements Document Initiated by Scribe: Yes Documenting Scribe: Marcelina Garg Provider For Whom Scribe is Documenting (Include Credential): Dr. Lev Oro MD Scribe Attestation: Marcelina Arellano , scribed for Dr. Lev Oro MD on 06/09/18 at 2126. Scribe Documentation Reviewed: Yes Provider Attestation: The documentation as recorded by the scribeMarcelina accurately reflects the service I personally performed and the decisions made by me, Dr. Lev Oro MD
[2018-06-09] MEDS ORDERED: Diltiazem IV* 5 MG/ML 5 ML VIAL (for loading dose/IV Push) (25 MG) IV SLOW PU ONE (16:27)
[2018-06-09 16:43] LABS: ABS Basophils 0.1 10^3/ul (0-0.2); ABS Eosinophils 0.1 10^3/ul (0-0.6); ABS Lymphocytes 1.6 10^3/ul (1.0-4.8); ABS Monocytes 0.7 10^3/ul (0-0.8); ABS Neutrophils 4.8 10^3/ul (1.5-7.7); ABS Nucleated RBC 0 10^3/ul; Eosinophil % 0.8 % (0-6); Hematocrit 32 % (35-47); Hemoglobin 10.9 g/dl (12.0-16.0); Lymphocyte % 22.3 % (25-47); Mean Corpuscular HGB Conc 34 g/dl (31-36); Mean Corpuscular Hemoglobin 32 pg (27-31); Mean Corpuscular Volume 94 fL (80-97); Mean Platelet Volume 7.2 um3 (7.4-10.4); Nucleated Red Blood Cells % 0; Platelet Count 236 10^3/ul (150-450); Red Blood Count 3.43 10^6/ul (4.00-5.40); Red Cell Distribution Width 16 % (10.5-15); White Blood Count 7.1 10^3/ul (3.5-10.8)
[2018-06-09] MEDS: Diltiazem DRIP* 100 MG/100 ML ADDV.BAG IVPB ONE ×2 (16:44→17:16)
[2018-06-09 16:48] LABS: INR 0.97 (0.77-1.02)
[2018-06-09 16:59] LABS: EGFR Non-African American 56.7 (>60)
[2018-06-09] MEDS ORDERED: Magnesium Sulfate 1 GM IV* 1 GM/100 ML BAG IV ONE (17:50)
[2018-06-09] MEDS ORDERED: Acetaminophen TAB* 325 MG PO PRN (17:50)
[2018-06-09] MEDS ORDERED: Potassium Chlor TAB* 20 MEQ TAB.ER PO ONE (17:50)
[2018-06-09] MEDS ORDERED: Diltiazem DRIP* 100 MG/100 ML ADDV.BAG IVPB SCH (18:00)
[2018-06-09] MEDS ORDERED: NS 0.9% 1000 ML* 1,000 ML IV SCH (18:00)
[2018-06-09 18:31] LABS: Corrected Retic Count 0.8 % (0.5-1.5); Hematocrit for Retic CNT 32 % (35-47); Immature Retic Fraction 0.39; RBC Retic Count 3.43 10^6/ul (4.6-6.2)
--- NOTE | 2018-06-09 19:35 | HP ---
CC: Dr. Osborne; Dr. Arreguin * HISTORY AND PHYSICAL: DATE OF ADMISSION: 06/09/18 PRIMARY CARE PROVIDER: Dr. Osborne. ATTENDING PHYSICIAN WHILE IN THE HOSPITAL: Dr. Madan Nugent * (report dictated by Yamil Steinberg NP). CONSULTING CALL OUT OPERATOR: Dr. Arreguin. CHIEF COMPLAINT: 1. Chest discomfort. 2. Irregular heartbeat. HISTORY OF PRESENT ILLNESS: Ms. Jefferson is an 82-year-old female patient. She carries history of a T12 compression fracture approximately 2 months ago, history of hypertension, AFib, history of prolapsed uterus, history of urinary retention, and also history of GERD. She does straight cath twice a day. She presents to the emergency department today stating that around 2 to 3 o'clock in the morning, she had chest discomfort across her chest that had no associated shortness of breath or palpitations at that point, but she did check her pulse and noted that it was fast and irregular. She did fall back asleep. She woke up this morning, she noted that she was having irregular heartbeat throughout the day, she was checking her pulse intermittently. She was concerned though because the rate just kept getting higher, she was having hard time counting it at times. She said that she had no more chest pressure, no swollen legs, no pain in the calves. She denied having any episodes of syncope with this. She said she had no more chest discomfort, no shortness of breath, but she was concerned because of the irregular heartbeat. She has had AFib previously in her lifetime that she says related to her thyroid condition. She called her primary and she was unable to get in touch with them being that it is a holiday, so she went to Urgent Care. When she arrived at Urgent Care, her heart rate was 142 and they were concerned and sent her to the ER. She denies any recent fevers, chills. No nausea, no vomiting. She says that she took her meds this morning. She denies having any more, again, chest pain. Because of the AFib with RVR and it was also noted that troponin was 0.06, we were asked to evaluate for admission. PAST MEDICAL HISTORY: Significant for: 1. T12 compression fracture back in March of this year. 2. Hypertension. 3. GERD. 4. Urinary retention. 5. AFib. 6. Prolapsed uterus. PAST SURGICAL HISTORY: She denies. MEDICATIONS: Home meds include: 1. Amitriptyline 25 mg p.o. q.p.m. 2. Toprol-XL 50 mg p.o. q.a.m. 3. Vitamin D 1000 units p.o. daily. 4. Calcium with vitamin D 1 tablet p.o. q.a.m. 5. Aspirin 81 mg daily. 6. Norvasc 5 mg p.o. daily. ALLERGIES TO MEDICATIONS: Include LATEX. FAMILY HISTORY: Her mother had a history of ALS. Father had a history of cancer. SOCIAL HISTORY: The patient does not smoke. She does not drink alcohol. Surrogate decision maker is her daughter. REVIEW OF SYSTEMS: There is no documented fever. She is denying having any significant weight change. There was no ear discharge. There was no rhinorrhea. She denies having any sore throat. There was no thyroid enlargement. There was chest pain last night, but none now. There is no dysuria , no frequency. No seizure, no loss of consciousness. No pruritus and no skin ulcerations. Review of 14 systems was completed, all others negative. PHYSICAL EXAMINATION GENERAL: At this time, Ms. Jefferson is an 82-year-old female patient. She is sitting in the ED stretcher, she does not appear to be in any acute distress. VITAL SIGNS: Blood pressure 114/89 with a pulse of 101, respirations 20, O2 sat 96%, temperature 97.6. HEENT: Head: Atraumatic and normocephalic. Eyes: EOMs are intact. Sclerae anicteric and not pale. Throat: Oral mucosa appears to be moist. No oropharyngeal erythema. NECK: Supple. LUNGS: Clear to auscultation bilaterally. There were no wheezes, rales, or rhonchi. HEART: Sounds S1, S2. Irregularly irregular rate. No murmurs, rubs, or gallops. ABDOMEN: Soft, flat, nontender. Bowel sounds re present. EXTREMITIES: Pulses were 2+ throughout. She is able to move all 4 extremities with 5/5 strength. NEUROLOGICAL: The patient is awake, she is alert, she is oriented x3. Her tongue is midline. Commercial Designer were equal. She had no gross focal deficits. SKIN: Intact. DIAGNOSTIC STUDIES/LAB DATA: Labs revealed a WBC of 7.1, RBC of 3.43, hemoglobin of 10.9, hematocrit of 32, platelet count of 236. INR of 0.97. Sodium was 134, potassium of 3.8, chloride of 101, bicarb 25, BUN 19, creatinine of 0.94, glucose of 112, lactate 1.4, calcium 9.5, mag 1.9. Total bili 0.5, AST 19, ALT 13, alk phos . Troponin 0.06. Albumin 3.9. TSH of 2.92. She had an EKG obtained today, which showed atrial fibrillation with a rate of [address] depression, no ST elevation was noted. It was reviewed to her previous EKG, previously she was in sinus bradycardia with a rate of 58 and that was from 2007. Old medical records were reviewed. ASSESSMENT AND PLAN: Ms. Jefferson is an 82-year-old female patient coming into the ED today with complaints of atrial fibrillation with rapid ventricular response. She will be admitted under observation status for: 1. Atrial fibrillation. At this point, I will go ahead and start the patient on Lovenox 1 mg/kg b.i.d., which works out to 65 mg b.i.d. I have ordered an echo for tomorrow. She will be n.p.o. after midnight for possible JAMEEL-guided cardioversion. I have consulted Cardiology. I will give her 1 g of mag and potassium. Her TSH was stable. I will also start her on diltiazem drip. The titration orders were placed in the ICU to get better control of her rate. Lastly, her heart rate was right around 110s to 120s. We are trying to get better, again, rate control. Also, because she has had a recent fracture and the fact that she did have a recent travel, she was in [place] over the weekend, I will check a D-dimer. If it is elevated, I will get a CTA. 2. Anemia. Etiology is unclear. She has been anemic since March. I am going to send off iron studies and B12, folate, reticulocyte count. If possible, I will try to get a stool occult as well and we will work this up. For the time being though, she will be placed on Lovenox. 3. Elevated troponin. It is probably secondary to demand ischemia due to her rate. We will strive for better rate control. She is on aspirin and beta fern. I will trend the troponins q.3 hours for 2 more times and we will continue to monitor. Again, Cardiology has been consulted. 4. Hypertension. Continue meds as prescribed. 5. History of T12 fracture. Continue with supportive care and meds as prescribed. She does have a TLSO brace, which she will need to bring in for comfort. 6. Gastroesophageal reflux disease. Continue meds as prescribed. 7. Urinary retention. She will straight cath p.r.n. 8. History of prolapsed uterus. Follow up with PCP. 9. DVT prophylaxis. She will be on Lovenox subcu. 10. Code status. Full code. 11. Fluids, electrolytes, and nutrition. She will have a heart-healthy diet and n.p.o. after midnight. TIME SPENT: On the admission was 60 minutes, greater than half the time was spent [id number] with the patient obtaining my history and physical, other half time was spent going over the plan of care with the patient and implementing the plan of care. I did discuss the plan of care with my attending, Dr. Nugent; he is in agreement. YAMIL STEINBERG NP [id number]/[facility] #: [id number] HERBERT
[2018-06-09] MEDS: Amitriptyline TAB* 25 MG PO SCH (20:05)
[2018-06-09] MEDS: Enoxaparin(*) 80 MG/0.8 ML SYR SUBCUT SCH (20:05)
[2018-06-09] MEDS ORDERED: Iodixanol* (CONTRAST) 320 MG/ML 100 ML SDV IV ONE (21:09)
[2018-06-09] MEDS ORDERED: Diltiazem IV VIAL* 125 MG in NS 0.9% 100 ML* 100 ML IV SCH (23:00)
--- NOTE | 2018-06-09 23:16 | RAD ---
EXAM: CT Angiography Chest With Intravenous Contrast CLINICAL HISTORY: 82 years old, female; Signs and symptoms; Other: Elevated ddimer 404; Additional info: Afib rvr, elevated dimer, ? pe TECHNIQUE: Axial computed tomographic angiography images of the chest with intravenous contrast using pulmonary embolism protocol. All CT scans at this facility use at least one of these dose optimization techniques: automated exposure control; mA and/or kV adjustment per patient size (includes targeted exams where dose is matched to clinical indication); or iterative reconstruction. MIP reconstructed images were created and reviewed. Coronal and sagittal reformatted images were created and reviewed. CONTRAST: 67 mL of visi administered intravenously. COMPARISON: No relevant prior studies available. FINDINGS: Pulmonary arteries: No pulmonary embolus. No dissection or aneurysm in the chest. Aorta: No acute findings. No thoracic aortic aneurysm. Great vessels of aortic arch: Moderate atherosclerosis. Aberrant right subclavian artery. Lungs: No consolidation, effusion or edema. Mild bronchial wall thickening. This may represent underlying inflammation or infection, or be chronic. Limited atelectasis. Pleural space: See above. Heart: Mildly enlarged heart. No significant pericardial effusion. No evidence of RV dysfunction. Bones/joints: Moderate compression fracture T12 which appears subacute or chronic. 3 mm retropulsion. Soft tissues: See above. Lymph nodes: Unremarkable. No enlarged lymph nodes. Other findings: No other acute disease seen. As above. IMPRESSION: 1. No pulmonary embolus. No dissection or aneurysm in the chest. 2. No consolidation, effusion or edema. 3. Mild bronchial wall thickening. This may represent underlying inflammation or infection, or be chronic. 4. Moderate compression fracture T12 which appears subacute or chronic. 3 mm retropulsion. 5. No other acute disease seen. As above.
[2018-06-10] MEDS: Enoxaparin(*) 80 MG/0.8 ML SYR SUBCUT SCH (05:42)
[2018-06-10 06:06] LABS: ABS Basophils 0 10^3/ul (0-0.2); ABS Eosinophils 0.1 10^3/ul (0-0.6); ABS Lymphocytes 1.8 10^3/ul (1.0-4.8); ABS Monocytes 0.4 10^3/ul (0-0.8); ABS Neutrophils 2.6 10^3/ul (1.5-7.7); ABS Nucleated RBC 0 10^3/ul; Eosinophil % 2.1 % (0-6); Hematocrit 29 % (35-47); Lymphocyte % 36.5 % (25-47); Mean Corpuscular HGB Conc 34 g/dl (31-36); Mean Corpuscular Hemoglobin 32 pg (27-31); Mean Corpuscular Volume 94 fL (80-97); Mean Platelet Volume 7.1 um3 (7.4-10.4); Nucleated Red Blood Cells % 0.1; Platelet Count 211 10^3/ul (150-450); Red Blood Count 3.13 10^6/ul (4.00-5.40); Red Cell Distribution Width 16 % (10.5-15)
[2018-06-10 06:22] LABS: EGFR Non-African American 59.7 (>60)
--- NOTE | 2018-06-10 07:33 | RAD ---
Indication: Atrial fibrillation. Single frontal view of the chest performed at 1828 hours was reviewed. Comparison is made with previous exam dated May 13, 2008. No mediastinal shift is noted. Heart is of normal size and configuration. Lung amato appear clear. IMPRESSION: NO ACTIVE CARDIOPULMONARY DISEASE IS NOTED. DEGENERATIVE CHANGES OF THE RIGHT GLENOHUMERAL JOINT IS NOTED. R1
[2018-06-10] MEDS ORDERED: Metoprolol Succinate XL TAB* 50 MG PO SCH (09:00)
[2018-06-10] MEDS ORDERED: Aspirin EC TAB* 81 MG TAB.EC PO SCH (09:00)
--- NOTE | 2018-06-10 10:17 | ECHO ---
Patient: ADRIANA BAGLEY [facility] Rec#: [id number] : 1935 Date: 06/10/2018 Age: 82y Height: 173 cm / 68.1 in Weight: 64.86 kg / 143.0 lbs Sex: F BSA: 1.77 Room#: [facility] Admit Date#: 06/10/2018 Type: Inpatient Referring: Yamil Steinberg NP Reading: Laura Alexis MD Notched Blade Loader: Julianne Bowden RDCS CC: Kandace Osborne MD Transthoracic Echocardiogram Indication: Abnormal EKG, atrial fibrillation with RVR. BP: 143/64 HR: 65 Rhythm: NSR Findings History: HTN, atrial fibrillation. Technical Comments: The study quality is good. Completed at 0940. Left Ventricle: The left ventricular chamber size is normal. There is no left ventricular hypertrophy. There is increased basal septal hypertrophy noted without evidence of an increased gradient across the left ventricular outflow tract. Global left ventricular wall motion and contractility are within normal limits. There is normal left ventricular systolic function. The estimated ejection fraction is 55-60%. Abnormal left ventricular diastolic function is observed. There is an E to A reversal in the mitral valve flow pattern suggestive of diastolic dysfunction. Left Atrium: The left atrial chamber size is normal. Right Ventricle: Moderator Band present. The right ventricular cavity size is normal. The right ventricular global systolic function is normal. Right Atrium: The right atrial cavity size is normal. Aortic Valve: The aortic valve is trileaflet. There is mild thickening of the non coronary cusp. There is aortic annular calcification. There is mild aortic regurgitation. There is no evidence of aortic stenosis. Mitral Valve: There is mitral annular calcification. The mitral valve leaflets are mildly thickened. There is mild mitral regurgitation. There is no evidence of mitral stenosis. Tricuspid Valve: The tricuspid valve leaflets are normal. There is mild to moderate tricuspid regurgitation. The right ventricular systolic pressure is estimated at 35 mmHg. There is evidence of borderline pulmonary hypertension. There is no tricuspid stenosis. Pulmonic Valve: The pulmonic valve appears normal. There is a trace pulmonic regurgitation. There is no pulmonic stenosis. Pericardium: There is no significant pericardial effusion. Aorta: There is no dilatation of the ascending aorta. There is no dilatation of the aortic arch. The aortic root is normal in size. Pulmonary Artery: The main pulmonary artery appears normal. Venous: The inferior vena cava is dilated. There is a greater than 50% respiratory change in the inferior vena cava dimension. Summary: There was not any prior study for comparison. Conclusions The left ventricular chamber size is normal. There is increased basal septal hypertrophy noted without evidence of an increased gradient across the left ventricular outflow tract. The estimated ejection fraction is 55-60%. Abnormal left ventricular diastolic function is observed. There is mild aortic regurgitation. There is mild mitral regurgitation. There is mild to moderate tricuspid regurgitation. The right ventricular systolic pressure is estimated at 35 mmHg. There is a trace pulmonic regurgitation. Measurements Name Value Normal Range RVIDd (AP) 2D 3 cm (0.9 - 2.6) RVDdMajor (2D) 4.1 cm (2.2 - 4.4) RAd ISD 4CH 4.5 cm (3.4 - 4.9) RA (A4C)W 4 cm (2.9 - 4.6) IVSd (2D) 0.7 cm (0.6 - 1) LVPWd (2D) 0.7 cm (0.6 - 1) LVIDd (2D) 4.4 cm (3.6 - 5.4) LVIDs (2D) 2.9 cm - LV FS (2D) 35 % (25 - 45) Aortic Annulus 2 cm (1.4 - 2.6) Ao root diameter (2D) 3.4 cm (2.1 - 3.5) Ascending Ao 2.7 cm (2.1 - 3.4) Aortic arch 2.3 cm (1.8 - 3.4) LA dimension (AP) 2D 4.1 cm (2.3 - 3.8) LAd ISD 4CH 4.2 cm (2.9 - 5.3) LA ISD 4CH W 4.3 cm (2.5 - 4.5) Name Value Normal Range LA ESV BP (A/L) index 22 ml/m2 - Name Value Normal Range MV E-wave Vmax 0.7 m/sec - MV deceleration time 151 msec - MV A-wave Vmax 0.9 m/sec - MV E:A ratio 0.8 ratio - LV septal e' Vmax 0.07 m/sec - LV lateral e' Vmax 0.07 m/sec - LV E:e' septal ratio 10 ratio - LV E:e' lateral ratio 10 ratio - Name Value Normal Range AV Vmax 1.1 m/sec - AV VTI 32.9 cm - AV peak gradient 5 mmHg - AV mean gradient 3 mmHg - LVOT Vmax 0.8 m/sec - LVOT VTI 19.6 cm - LVOT peak gradient 2 mmHg - LVOT mean gradient 1 mmHg - YESSICA Vmax 0.8 m/sec - Name Value Normal Range TR Vmax 2.6 m/sec - TR peak gradient 27 mmHg - RAP 8 mmHg - RVSP 35 mmHg - IVC diameter 2.7 cm - Name Value Normal Range PV Vmax 0.8 m/sec - PV peak gradient 2 mmHg -
--- NOTE | 2018-06-10 13:50 | CONS ---
CC: Hospital Service; Dr. Alexis; Dr. Osborne CARDIOLOGY CONSULTATION REPORT: DATE OF CONSULT: 06/10/18 HISTORY OF PRESENT ILLNESS: The patient is a pleasant 82-year-old female patient, who does have a hi story of T12 compression fracture in March of this year, history of systemic arterial hypertension, ga stroesophageal reflux disease, and atrial fibrillation, who presented to the emergency room after she was checking her blood pressure and also she was found to be tachycardic. She had some episode of c hest discomfort the night before, but no recurrence. She had a history of atrial fibrillation about 10 years ago and she relates that to thyroid medication and since then, she has not been having any f ibrillation recurrence and she is not on thyroid medication. In the emergency room, she was found to be in rapid ventricular response. Her troponin was 0.06 and then did go down to 0.05. No chest wayne n in the hospital actually. She was treated with beta fern and Cardizem and she converted spontan eously. She is in normal sinus rhythm and she continues to be in normal sinus rhythm. She feels goo d actually. She gives no nausea, no vomiting, no hematochezia, no skin rash, no abdominal pain, no s yncope, no fever, no chills, no orthopnea, no history of myocardial infarction, no history of coronar y artery disease, no history of congestive heart failure, and no history of diabetes mellitus. She d oes have a history of systemic arterial hypertension; she takes medications. Review of all other sys tems essentially is negative. PAST MEDICAL HISTORY: Her other medical history as outlined above also history of urinary retention and prolapsed uterus. MEDICATIONS: As an outpatient include: 1. Toprol-XL 50 mg daily. 2. Vitamin D 1000 units daily. 3. Calcium 1 daily. 4. Aspirin 81 mg daily. 5. Norvasc 5 mg daily. 6. Amitriptyline 25 mg daily. ALLERGIES: She is allergic to LATEX. FAMILY HISTORY: She had no family history of coronary artery disease. SOCIAL HISTORY: She gives no history of smoking, no drinking, no illicit drug use. She lives by hers elf. REVIEW OF SYSTEMS: Review of all other systems essentially is negative. PHYSICAL EXAM: She is awake, alert, and oriented. She is pleasant. She is not in acute distress. Vitals: Blood pressure 143/72, pulse 71, she is in sinus rhythm. She is afebrile. Head and Neck Exa m: Normocephalic and atraumatic head. Ears, Nose, and Throat: Essentially benign. Neck: Supple. JVP is not elevated. No carotid bruits. No masses in the neck are appreciated. Chest is clear to auscultation. No rales, no wheezes, no added sounds appreciated. Heart: Normal. Regular S1 and S2. No added sound. No gallops, no rubs are appreciated. Abdomen is benign, soft, positive bowel soun ds. Extremities: No edema, no cyanosis, and no clubbing. Skin Exam: Normal. Psych: Normal affec t and mood. FUNERAL DIRECTOR'S ASSISTANT: No focal deficits appreciated. DIAGNOSTIC STUDIES/LAB DATA: Showed white blood cells 5, hemoglobin 10, hematocrit 29, platelets 211 . She had a sodium of 134, potassium of 3.8, chloride 102, total CO2 of 26, BUN 19, creatinine 0.90. LFTs normal. Troponin 0.06 and then 0.05. Triglyceride 95, cholesterol 158, LDL 102, HDL 38. B12 640. Folate 15. TSH 2.92, which is normal. She had a CTA of the chest that showed her to have no pulmonary embolism. There is T12 compression f racture. EKG showed the patient to be in normal sinus rhythm, no acute ST-T changes, that is from today. Her echo done today showed EF 55% to 60%. She does have mild aortic insufficiency and mild mitral in sufficiency. IMPRESSION: The patient is an 82-year-old female with: 1. Rapid atrial fibrillation and converted spontaneously after beta fern and Cardizem treatment. She is in sinus rhythm. 2. Normal left ventricular systolic function. 3. Mild aortic insufficiency and mild mitral insufficiency. 4. Indeterminate borderline troponin, probably related to her rapid atrial fibrillation, although co ronary artery disease cannot be completely excluded. She is chest pain free at the moment and since been in the hospital. 5. Gastroesophageal reflux disease. 6. Anemia. 7. Systemic arterial hypertension, on medical treatment. 8. Remote history of thyroid, although her recent TSH yesterday was normal. PLAN: The patient currently in normal sinus rhythm. A lengthy discussion with the patient today abo ut her medical condition. I discussed her with the hospitalist service. I agree regarding her CHADS -VASc scoring system based on her age, female sex, systemic arterial hypertension, she needs long-ter m anticoagulation more than aspirin. I understand the hospitalist considering [place]. She is in [facility] on Lovenox. She is to continue on her beta-fern treatment, I think Cardizem 30 mg shor t-acting twice a day might be helpful, especially she responded to Cardizem IV drip in the hospital. She is to keep potassium more than 4, magnesium more than 2. She is to stay well hydrated. She is to follow up with you accordingly. She is to have an outpa tient evaluation with a stress test as a part of her risk stratification; that is important. Any fur ther recommendation would be pending her clinical outcome. I answered all her concerns and questions up to her satisfaction. TIME SPENT: More than half of at least 60-to 65-plus minute was in the education and counseling mode , [id number] discussing the above, making further recommendations. [id number]/[facility] #: [id number]
[2018-06-10] MEDS ORDERED: Diltiazem TAB* 30 MG PO SCH (17:00)
[2018-06-10] MEDS ORDERED: Apixaban* 5 MG TAB PO SCH (17:00)
[2018-06-10] MEDS: Amitriptyline TAB* 25 MG PO SCH (17:08)
[2018-06-10 17:58] VITALS: BP 171/77
--- NOTE | 2018-06-10 22:16 | DS ---
CC: Dr. Benoit; Dr. Matheus Arreguin; Dr. Laura Alexis; Dr. Kandace Osborne * DISCHARGE SUMMARY: DATE OF ADMISSION: 06/09/18 DATE OF DISCHARGE: 06/20/18 PRIMARY CARE PROVIDER: Dr. Kandace Osborne. ATTENDING FOR THIS ADMISSION: Dr. Madan Nugent. MY ATTENDING FOR TODAY: Elen Benoit DO * (DICTATED BY SHADIA BARRAGAN NP) HOSPITAL COURSE: This is a very pleasant 82-year-old female patient with a history of T12 compression fracture, hypertension, prolapsed uterus, neurogenic bladder, paroxysmal atrial fibrillation and GERD. The patient states that she was in her usual state of health at home. She did sustain this compression fracture 2 months ago; however, she did not have any further complications. Since that has happened, she did notice that about 2 in the morning prior to admission that she started to feel like she was having a thready pulse, some palpitations and rapid heart rate. She did fall back asleep after that; however , when she awoke in the morning, her pulse remained irregular and rapid. She went to Urgent Care for evaluation. She was found to have a heart rate of 142 and irregular. She was sent to the emergency department where she was found to be in AFib with rapid ventricular response. Troponin was borderline likely due to demand ischemia at 0.06. The patient was promptly evaluated for admission and placed on Cardizem drip. The patient was admitted to ICU where the drip was titrated. She spontaneously converted to regular sinus rhythm at approximately 4 o'clock in the morning. The patient has been in sinus rhythm to sinus en. She had initial ST-segment depressions while she was in the rapid ventricular response. However, her ST- segment changes resolved after her rhythm converted. She remained off the Cardizem throughout the morning and was able to hold her rhythm. The patient does take beta- fern for hypertension at baseline and also stated that this has happened 10 years ago; however, at that time, she was not placed on any additional medications nor was she placed on anticoagulation. At this point, I had a discussion with Dr. Alexis regarding the patient's care. The patient is stable. She has had no further ectopy or issues. Her echocardiogram showed no additional acute pathology. Cardiology was in favor of discharging the patient home on a small dose of Cardizem short acting p.o. as well as initiating anticoagulation with a NOAC. REVIEW OF SYSTEMS: Today, the patient denies any fever, fatigue or chills, no palpitations, no chest pain, no chest pressure. No dizziness, no shortness of breath, no abdominal pain, no nausea, no vomiting, no diarrhea, no constipation , no arthralgias or myalgias, no further constitutional complaints. PHYSICAL EXAMINATION ON DAY OF DISCHARGE: Vital signs: Blood pressure is 162/ 69, heart rate is 70, respiratory rate 17, O2 saturation 96% to 98% on room air , temperature is 97.8. HEENT: The patient is atraumatic, normocephalic. PERRLA with nonicteric sclerae. Neck is supple and nontender. No JVD noted. No carotid bruit auscultated. Cardiovascular: S1, S2 present. No murmurs, gallops or rubs noted. Rate and rhythm are currently regular on telemetry. The lungs are clear bilaterally to auscultation with no wheezing, rhonchi or rales. Abdomen is soft, nontender, nondistended. Positive bowel sounds in all 4 quadrants. was deferred. Musculoskeletal: There is no clubbing, no cyanosis, no edema. She has positive distal pulses palpable, full range of motion, steady gait unassisted. Neurologic: She is grossly intact, no new focalities. Psychiatric: She is cooperative and appropriate. LABORATORY DATA: WBC 5.0, RBC 3.13, hemoglobin 10.0, hematocrit 29, platelets 211, sodium 134, potassium 3.8, chloride 102, BUN 19, creatinine 0.90, GFR is 59.7, glucose is 97, hemoglobin A1c 5.6, calcium 9.0, troponins were mildly bumped at 0.06, 0.06, 0.06 and 0.05, currently trending down. Lactic acid negative at 1.4, B12 is 640, folate 14.85, TSH 2.92, triglycerides 95, cholesterol total 158, LDL 102 and HDL is 37.5. IMAGING: Transthoracic echocardiogram dated 06/09/18 shows estimated ejection fraction at 55% to 60%, left ventricular chamber size is normal, there is increased basal septal hypertrophy noted without evidence of an increased gradient across the ventricle outflow tract, so she is not obstructed. Abnormal left ventricular diastolic function is observed, mild aortic regurg, mild mitral regurg, mild to moderate tricuspid regurg, the right ventricular systolic pressure is estimated at 35 mmHg and there was trace pulmonic regurgitation. Also CTA of the chest was performed given the patient's mild shortness of breath to rule out a PE. She has no pulmonary embolus, no consolidation, effusion or edema. She has some mild bronchial wall thickening, which may represent underlying inflammation or may be chronic. There is moderate compression fracture of T12, which appears to be subacute or chronic with a 3 mm retropulsion and with no other acute disease noted. EKG is currently regular sinus rhythm. DISCHARGE DIAGNOSES: 1. Paroxysmal atrial fibrillation with RVR, now resolved. 2. Anemia, chronic since March 2018. 3. Elevated troponin likely due to demand ischemia, now trending down. 4. History of hypertension, stable, on metoprolol. 5. History of T12 fracture with mild retropulsion, at baseline. 6. History of gastroesophageal reflux disease, stable. 7. History of neurogenic bladder and urinary retention. The patient can continue straight cath on her own as she does at home. DISCHARGE MEDICATIONS: Include: 1. Elavil 25 mg in the evening. 2. Metoprolol succinate XL 50 mg daily. 3. Vitamin D 1000 units daily. 4. Calcium carbonate and vitamin D3 combination 1 tablet daily. 5. Aspirin 81 mg daily. 6. Amlodipine 5 mg daily. 7. Diltiazem, which is new, 30 mg p.o. b.i.d. 8. Apixaban 5 mg p.o. q.12 hours. DISPOSITION: The patient will be discharged to home. She does have family at bedside. The patient stated understanding of her discharge instructions and new medication and she is agreeable to plan of care. FOLLOWUP: The patient was instructed to follow up with Dr. Kandace Osborne within the next 3 days. The patient should have a discussion with Dr. Osborne regarding followup now with a mainframe consultant of her choice at discharge to continue to manage her medications for her atrial fibrillation. For now, we have recommended the patient stay on anticoagulation for at least 30 days and continue her metoprolol and Cardizem for rate control. She should also check her blood pressure daily to ensure her pressures are not too soft with the addition of the new medication. Patient again was discharged in stable condition. All questions were answered. The patient will be ready to leave the hospital approximately 6 p.m. today after her initial dose of Eliquis is given at 5 p.m. SHADIA BARRAGAN, MEDICAL SERVICES COORDINATOR [id number]/[facility] #: [id number] [facility]
[2018-06-11] MEDS ORDERED: Metoprolol Succinate XL TAB* 50 MG PO ONE (09:00)
== END 2018-06-10 22:00 | disposition home or self-care (01) | DRG 309 ==
LOC: ED 15:51 → ICU 17:41
PROVIDERS: ADMIT Hospitalist; ATTEND Hospitalist
DX: I48.0 Paroxysmal atrial fibrillation (principal); I24.8 Other forms of acute ischemic heart disease; I10 Essential (primary) hypertension; E07.9 Disorder of thyroid, unspecified; K21.9 Gastro-esophageal reflux disease without esophagitis; H26.9 Unspecified cataract; M15.9 Polyosteoarthritis, unspecified; F41.9 Anxiety disorder, unspecified; N81.4 Uterovaginal prolapse, unspecified; M48.54XD Collapsed vertebra, not elsewhere classified, thoracic region, subsequent encounter for fracture with routine healing; R33.9 Retention of urine, unspecified; N31.9 Neuromuscular dysfunction of bladder, unspecified; R00.1 Bradycardia, unspecified; I08.3 Combined rheumatic disorders of mitral, aortic and tricuspid valves; Z79.01 Long term (current) use of anticoagulants; Z79.82 Long term (current) use of aspirin; Z91.040 Latex allergy status; Z87.440 Personal history of urinary (tract) infections; Z98.41 Cataract extraction status, right eye; Z85.828 Personal history of other malignant neoplasm of skin; Z72.89 Other problems related to lifestyle; Z80.9 Family history of malignant neoplasm, unspecified; Z82.0 Family history of epilepsy and other diseases of the nervous system; Z97.4 Presence of external hearing-aid
CPT/HCPCS: 36415; 71045; 71275; 80048; 80053; 80061; 82607; 82728; 82746; 83010; 83036; 83540; 83550; 83605; 83615; 83735; 83921; 84443; 84484; 85025; 85045; 85379; 85610; 87641; 93005; 93306; 99213; 99285; A9270-GY; G0463; J1650; J3475; Q9967

== ENCOUNTER 2018-10-11 14:57 | Emergency (ER) | payer MEDICARE, BC ==
[2018-10-11 15:24] VITALS: BP 135/65
--- NOTE | 2018-10-11 16:04 | UC ---
Complaint Female HPI - HPI Summary HPI Summary: c/o pain and burning with urination--began last night--no fevers, back pain, nausea or vomiting---patient did take a pyridium---she also straight caths-- - History Of Current Complaint Chief Complaint: UCGU Stated Complaint: BURNING W/ URINATION Time Seen by Provider: 10/11/18 15:46 Hx Obtained From: Patient ?: No Onset/Duration: Sudden Onset, Lasting Hours - 12 Timing: Constant Severity Initially: Moderate Severity Currently: Moderate Character: Burning Aggravating Factor(s): Urination Alleviating Factor(s): Nothing Associated Signs And Symptoms: Positive: Negative Related Hx: Similar Episode/Dx as: - prior uti - Allergies/Home Medications Allergies/Adverse Reactions: Allergies Allergy/AdvReac Type Severity Reaction Status Date / Time latex Allergy Rash Verified 10/11/18 15:24 Home Medications: Home Medications Atenolol TAB* [Tenormin TAB* 50 MG] 100 mg PO DAILY 10/11/18 [History Confirmed 10/11/18] Phenazopyridine HCl [Pyridium] 10/11/18 [History] amLODIPine TAB* [Norvasc 5 mg TAB*] 10 mg PO DAILY 10/11/18 [History Confirmed 10/11/18] PMH/Surg Hx/FS Hx/Imm Hx Previously Healthy: No Cardiovascular History: Hypertension, Atrial Fibrillation - Surgical History Surgical History: Yes Surgery Procedure, Year, and Place: (20-30 YEARS AGO) DILATION AND CURETTAGE, [facility] [place]. 1995 LEFT HEEL SPUR EXCISION, [facility] [place]. 2006 EXPLORATORY BLADDER SURGERY, [facility] [place]. SEVERAL BASAL CELL CARCINOMA REMOVAL. BILATERAL EYE CATARACT EXTRACTION - Family History Known Family History: Negative: Cardiac Disease, Diabetes - Social History Occupation: Retired Lives: With Family Alcohol Use: Occasionally Alcohol Amount: OCCASIONAL VODKA SOUR Substance Use Type: None Smoking Status (MU): Never Smoked Tobacco - Immunization History Most Recent Influenza Vaccination: in the past year Most Recent Pneumonia Vaccination: in the past at some time Review of Systems All Other Systems Reviewed And Are Negative: Yes Constitutional: Positive: Negative Skin: Positive: Negative Eyes: Positive: Negative ENT: Positive: Negative Respiratory: Positive: Negative Cardiovascular: Positive: Negative Gastrointestinal: Positive: Negative Genitourinary: Positive: Dysuria, Frequency, Urgency Motor: Positive: Negative Neurovascular: Positive: Negative Musculoskeletal: Positive: Negative Neurological: Positive: Negative Psychological: Positive: Negative Is Patient Immunocompromised?: No Physical Exam Triage Information Reviewed: Yes Appearance: Well-Appearing, No Pain Distress, Well-Nourished Vital Signs: Initial Vital Signs Temp 97 F 10/11/18 15:20 Pulse 71 10/11/18 15:20 Resp 16 10/11/18 15:20 BP 135/65 10/11/18 15:20 Pulse Ox 100 10/11/18 15:20 Vital Signs Reviewed: Yes Eye Exam: Normal Eyes: Positive: Conjunctiva Clear ENT Exam: Normal ENT: Positive: Normal ENT inspection, Hearing grossly normal. Negative: Trismus , Muffled voice, Hoarse voice Dental Exam: Normal Neck exam: Normal Neck: Positive: Supple, Nontender Respiratory Exam: Normal Respiratory: Positive: Chest non-tender, Lungs clear, Normal breath sounds, No respiratory distress, No accessory muscle use Cardiovascular Exam: Normal Cardiovascular: Positive: RRR, No Murmur, Pulses Normal, Brisk Capillary Refill Abdominal Exam: Normal Abdomen Description: Positive: Nontender, No Organomegaly, Soft. Negative: CVA Tenderness (R), CVA Tenderness (L), McBurney's Point Tenderness Bowel Sounds: Positive: Present Musculoskeletal Exam: Normal Musculoskeletal: Positive: Strength Intact, ROM Intact, No Edema Neurological Exam: Normal Neurological: Positive: Alert, Muscle Tone Normal Psychological Exam: Normal Skin Exam: Normal Diagnostics - Laboratory Diagnostic Studies Completed/Ordered: unable to "dip urine" patient used pyridium---will culture urine Complaint Female Dx - Course Course Of Treatment: culture urine, begin cipro follow with pcp and or Dr. Hunter Saturday-to ED if symptoms worsen in any way - Differential Dx/Diagnosis Provider Diagnosis: UTI symptoms Discharge - Sign-Out/Discharge Documenting (check all that apply): Patient Departure All imaging exams completed and their final reports reviewed: No Studies - Discharge Plan Condition: Stable Disposition: HOME Prescriptions: Ciprofloxacin TAB* [Cipro 250 MG Tab*] 250 mg PO BID 3 Days #6 tab Patient Education Materials: Urinary Tract Infection in Women (DC) Referrals: Kandace Osborne MD [Primary Care Provider] - 2 Days - Billing Disposition and Condition Condition: STABLE Disposition: Home - Attestation Statements Provider Attestation: Per institutional requirements, I have reviewed the chart, however, I was not consulted specifically or made aware of this patient by the midlevel provider. I did not personally evaluate, interact with , or disposition this patient.
== END 2018-10-11 16:30 | disposition home or self-care (01) ==
LOC: UCEAST 14:57
DX: N39.0 Urinary tract infection, site not specified (principal); B96.1 Klebsiella pneumoniae [K. pneumoniae] as the cause of diseases classified elsewhere; I10 Essential (primary) hypertension
CPT/HCPCS: 51701; 87077; 87086; 87186; 99213; G0463